=== PATIENT | male | born 1935 | race Caucasian/White ===

== ENCOUNTER 2017-11-05 09:39 | Inpatient (IN) | payer MEDICARE ==
--- NOTE | 2017-11-05 10:13 | ED ---
Upper Extremity HPI - General Chief Complaint: Extremity Injury, Upper Stated Complaint: fall Time Seen by Provider: 11/05/17 10:00 Source: patient, EMS, RN notes reviewed Mode of arrival: EMS Limitations: no limitations - History of Present Illness Initial Comments: This is a 81-year-old male who uses a walker a scooter to move about normally was trying to negotiate 3 stairs when he had his arm on a rail and he felt a pop and it. He fell down and was unable to get up. Denies any upper is normal for him if he gets out he states he complains of pain in the right elbow and abrasions to the right first and second dorsal toes no other injuries or pain reported. He states his right hip as bad but this is not affected by today's activity. He does state that over the of October he was using his right upper extremity when he had another popping sensation in his hasn't swelling to the posterior aspect of the elbow since then. He denies any fevers chills sweats headache neck and back pain. No other modifying factors at this time. MD Complaint: Injury to:: right, elbow - Related Data Allergies Allergy/AdvReac Type Severity Reaction Status Date / Time No Known Allergies Allergy Verified 11/05/17 09:41 Review of Systems ROS Statement: Those systems with pertinent positive or pertinent negative responses have been documented in the HPI. ROS Other: All systems not noted in ROS Statement are negative. Past Medical History Past Medical History: No Reported History History of Any Multi-Drug Resistant Organisms: None Reported Past Surgical History: Appendectomy Past Psychological History: No Psychological Hx Reported Smoking Status: Never smoker Past Alcohol Use History: Occasional General Exam - General Exam Comments Initial Comments: This is a well-developed well-nourished awake alert oriented 3 male Larisa Coma Scale 15 Limitations: no limitations General appearance: alert, in no apparent distress Head exam: Present: atraumatic, normocephalic, normal inspection Eye exam: Present: normal appearance, PERRL, EOMI. Absent: scleral icterus, conjunctival injection, periorbital swelling ENT exam: Present: normal exam, mucous membranes moist Neck exam: Present: normal inspection. Absent: tenderness, meningismus, lymphadenopathy Respiratory exam: Present: normal lung sounds bilaterally. Absent: respiratory distress, wheezes, rales, rhonchi, stridor Cardiovascular Exam: Present: regular rate, normal rhythm, normal heart sounds. Absent: systolic murmur, diastolic murmur, rubs, gallop, clicks GI/Abdominal exam: Present: soft, normal bowel sounds. Absent: distended, tenderness, guarding, rebound, rigid Extremities exam: Present: full ROM, tenderness, normal capillary refill, other (Tennis palpation to the right upper extremity over the elbow is evidence of a swelling to the posterior aspect of the right elbow which may reflect a bursitis.). Absent: pedal edema, joint swelling, calf tenderness Back exam: Present: normal inspection Neurological exam: Present: alert, oriented X3, CN II-XII intact Psychiatric exam: Present: normal affect, normal mood Skin exam: Present: warm, dry, intact, other (Some discoloration to the right lower extremity he states she's had this for about a year status post placing some ointment on his right lower extremity). Absent: normal color, rash Course Vital Signs 11/05/17 09:41 Temperature 98.7 F Pulse Rate 88 Respiratory 16 Rate Blood Pressure 165/91 O2 Sat by Pulse 97 Oximetry Medical Decision Making - Medical Decision Making Did have a long discussion with the patient and family members including his son via telephone. Patient will be admitted for placement. He is a risk for fall at home and unable care for himself. - Lab Data Result diagrams: 11/05/17 11:24 11/05/17 11:24 Lab Results 11/05/17 11/05/17 11/05/17 Range/Units 11:24 11:24 11:24 WBC 8.6 (3.8-10.6) k/uL RBC 4.83 (4.30-5.90) m/uL Hgb 15.4 (13.0-17.5) gm/dL Hct 45.8 (39.0-53.0) % MCV 94.9 (80.0-100.0) fL MCH 32.0 (25.0-35.0) pg MCHC 33.7 (31.0-37.0) g/dL RDW 13.8 (11.5-15.5) % Plt Count 156 (150-450) k/uL Neutrophils % 85 % Lymphocytes % 8 % Monocytes % 6 % Eosinophils % 1 % Basophils % 0 % Neutrophils # 7.2 (1.3-7.7) k/uL Lymphocytes # 0.7 L (1.0-4.8) k/uL Monocytes # 0.5 (0-1.0) k/uL Eosinophils # 0.1 (0-0.7) k/uL Basophils # 0.0 (0-0.2) k/uL Sodium 139 (137-145) mmol/L Potassium 4.6 (3.5-5.1) mmol/L Chloride 107 (98-107) mmol/L Carbon Dioxide 26 (22-30) mmol/L Anion Gap 6 mmol/L BUN 17 (9-20) mg/dL Creatinine 0.80 (0.66-1.25) mg/dL Est GFR (CKD-EPI)AfAm >90 (>60 ml/min/1.73 sqM) Est GFR (CKD-EPI)NonAf 85 (>60 ml/min/1.73 sqM) Glucose 112 H (74-99) mg/dL Calcium 9.1 (8.4-10.2) mg/dL Magnesium 2.0 (1.6-2.3) mg/dL Total Bilirubin 0.9 (0.2-1.3) mg/dL AST 29 (17-59) U/L ALT 33 (21-72) U/L Alkaline Phosphatase 80 (38-126) U/L Total Creatine Kinase 148 (55-170) U/L CK-MB (CK-2) 3.0 H* (0.0-2.4) ng/mL CK-MB (CK-2) Rel Index 2.0 Troponin I <0.012 (0.000-0.034) ng/mL Total Protein 6.4 (6.3-8.2) g/dL Albumin 3.8 (3.5-5.0) g/dL - EKG Data -: EKG Interpreted by Me (Sinus rhythm rate of 87 first-degree AV block VT interval 248 QRS duration ) - Radiology Data Radiology results: report reviewed (I did review the imaging and report marked degenerative change seen in the right hip distally no fractures seen the right elbow there is evidence of swelling about the right olecranon.), image reviewed Disposition Clinical Impression: Failure to thrive, Fall, Strain of right elbow, Chronic right hip pain Disposition: ADMITTED IP TO THIS [facility] Condition: Stable Referrals: Michelle Reynaga MD [Primary Care Provider] - 1-2 days
--- NOTE | 2017-11-05 10:27 | XR ---
EXAMINATION TYPE: XR elbow complete RT , 3 VIEWS DATE OF EXAM ORDERED: 11/05/2017 HISTORY: Pain. COMPARISON: None. FINDINGS: No fracture, dislocation or joint effusion is seen. There is a small olecranon spur. There are vascular calcifications in the posterior aspect of the arm likely reflecting phleboliths. There is evidence of chronic calcific tendinosis of the common extensor origin. IMPRESSION: NO ACUTE OSSEOUS LESION.
[2017-11-05 11:45] LABS: Basophils % (A) 0 %; Eosinophils # (A) 0.1 k/uL (0-0.7); Eosinophils % (A) 1 %; HCT 45.8 % (39.0-53.0); HGB 15.4 gm/dL (13.0-17.5); Lymphocytes # (A) 0.7 k/uL (1.0-4.8); Lymphocytes % (A) 8 %; MCHC 33.7 g/dL (31.0-37.0); MCV 94.9 fL (80.0-100.0); Mean Platelet Volume 7.2; Monocytes # (A) 0.5 k/uL (0-1.0); Monocytes % (A) 6 %; Neutrophils # (A) 7.2 k/uL (1.3-7.7); Neutrophils % (A) 85 %; Platelet Count 156 k/uL (150-450); RBC 4.83 m/uL (4.30-5.90); RDW 13.8 % (11.5-15.5); WBC 8.6 k/uL (3.8-10.6)
[2017-11-05 12:02] LABS: ALT 33 U/L (21-72); AST 29 U/L (17-59); Albumin 3.8 g/dL (3.5-5.0); Alkaline Phosphatase 80 U/L (38-126); Anion Gap 6 mmol/L; Blood Urea Nitrogen 17 mg/dL (9-20); Calcium 9.1 mg/dL (8.4-10.2); Carbon Dioxide 26 mmol/L (22-30); Chloride 107 mmol/L (98-107); Glucose 112 mg/dL (74-99); Potassium 4.6 mmol/L (3.5-5.1); Sodium 139 mmol/L (137-145); Total Bilirubin 0.9 mg/dL (0.2-1.3); Total Protein 6.4 g/dL (6.3-8.2)
[2017-11-05 12:11] LABS: Creatine Kinase 148 U/L (55-170)
[2017-11-05 12:24] LABS: Troponin I <0.012 ng/mL (0.000-0.034)
[2017-11-05 12:56] LABS: Amorphous Sediment,Urine Rare /hpf; Appearance,Urine Clear (Clear); Bacteria,Urine Rare /hpf; Bilirubin,Urine Negative (Negative); Blood,Urine Negative (Negative); Color,Urine Yellow; Glucose,Urine (UA) Negative (Negative); Hyaline Casts,Urine 5 /lpf (0-2); Ketones,Urine Negative (Negative); Leukocyte Esterase,Urine Large (Negative); Mucus,Urine Rare /hpf; Nitrite,Urine Negative (Negative); PH, Urine 6.5 (5.0-8.0); Protein,Urine Trace (Negative); RBC,Urine 2 /hpf (0-5); Specific Gravity,Urine 1.014 (1.001-1.035); Squamous Epithelial Cell,Urine 1 /hpf (0-4); WBC,Urine 59 /hpf (0-5)
[2017-11-05] MEDS ORDERED: NALOXONE 0.4 MG/ML 1 ML VIAL IV PRN (12:57)
[2017-11-05] MEDS ORDERED: HYDROmorphone 0.5 MG/0.5 ML SYRINGE IVP PRN (13:00)
--- NOTE | 2017-11-05 13:14 | XR ---
EXAMINATION TYPE: XR Hip RT and AP Pelvis , 2 VIEWS DATE OF EXAM ORDERED: 11/05/2017 HISTORY: Pain. COMPARISON: None. FINDINGS: There is extensive and severe degenerative change of both hips. There is mild degenerative change in the lower lumbar spine. No acute fracture is seen. IMPRESSION: 1. EXTENSIVE DEGENERATIVE CHANGE. 2. NO ACUTE OSSEOUS LESION.
--- NOTE | 2017-11-05 13:15 | XR ---
EXAMINATION TYPE: XR chest 2V DATE OF EXAM: 11/05/2017 HISTORY: cough. REFERENCE: NONE. FINDINGS: Lung volumes are prominent. The lungs are clear. Heart size is enlarged. Pleural spaces are clear. IMPRESSION: 1. COPD. 2. CARDIOMEGALY.
[2017-11-05] MEDS: SODIUM CHLORIDE 0.9% 1,000 ML IV SCH (13:44)
[2017-11-05 14:57] VITALS: BMI 34.9
[2017-11-05] MEDS: ACETAMINOPHEN TAB 325 MG TAB PO PRN (17:59)
[2017-11-06] MEDS: SODIUM CHLORIDE 0.9% 1,000 ML IV SCH ×2 (00:59→14:19)
[2017-11-06] MEDS: ACETAMINOPHEN TAB 325 MG TAB PO PRN ×3 (00:59→23:13)
--- NOTE | 2017-11-06 12:37 | P.CNOR ---
History of Present Illness - HPI Consult date: 11/06/17 History of present illness: This is an 81-year-old male was admitted for right hip and right elbow pain. Patient states that he ambulates with a walker due to limited mobility of bilateral lower extremities. Patient states that on 10/26/2017 he felt a pop in the right elbow. Patient states that he did not experience much pain at this time. Patient states that yesterday he was walking up the stairs and using his right arm to support his weight when he heard a pop and his right elbow gave out on him and he fell. Patient reports pain with extension of the right upper extremity and ecchymosis to the right arm. Patient states that his right hip pain is chronic for him and this is not worse after his fall. Patient states that he may have hit his head, but he denies any loss of consciousness. Patient denies being on any anticoagulants. Patient denies any headaches, nausea, numbness, weakness, tingling, fever or chills. Review of Systems See HPI. Past Medical History Past Medical History: No Reported History History of Any Multi-Drug Resistant Organisms: None Reported Past Surgical History: Appendectomy Additional Past Surgical History / Comment(s): galstones removed Smoking Status: Never smoker Medications and Allergies Home Medications Medication Instructions Recorded Confirmed Type No Known Home Medications 11/05/17 11/05/17 History Allergies Allergy/AdvReac Type Severity Reaction Status Date / Time No Known Allergies Allergy Verified 11/05/17 14:59 Physical Examination On exam patient is alert and oriented 3. Patient is lying in bed in no acute distress. On exam of the right upper extremity there is ecchymosis to the medial and posterior aspects of the right upper arm and elbow. There is swelling and ecchymosis over the right elbow. There is tenderness to palpation over the posterior medial aspect of the right elbow. Patient has full flexion but has weakness and pain with extension of the right elbow. There is no tenderness to palpation over the right shoulder, forearm, wrist or hand. Sensation is intact. Radial pulses 2+. Patient has full range of motion of the right wrist and hand. Neurovascular status and circulatory status are intact. Skin is intact. On exam of the right hip patient has pain with log roll. Patient has very limited range of motion of the right hip due to pain. There is no tenderness to palpation over the right hip. There is no erythema, ecchymosis or swelling of the right hip. Patient has full foot and ankle motion without pain or difficulty. Calves are soft and nontender bilaterally. Neurovascular status and circulatory status are intact. Results X-rays of the right hip and pelvis show severe arthritis of bilateral hips. No fracture or dislocation. X-rays of the right elbow are negative for any fracture or dislocation. - Labs Labs: Abnormal Lab Results - Last 24 Hours (Table) 11/05/17 11/05/17 11/05/17 Range/Units 11:24 11:24 11:24 Lymphocytes # 0.7 L (1.0-4.8) k/uL Glucose 112 H (74-99) mg/dL CK-MB (CK-2) 3.0 H* (0.0-2.4) ng/mL Urine Protein (Negative) Ur Leukocyte Esterase (Negative) Urine WBC (0-5) /hpf Amorphous Sediment (None) /hpf Urine Bacteria (None) /hpf Hyaline Casts (0-2) /lpf Urine Mucus (None) /hpf 11/05/17 Range/Units 12:37 Lymphocytes # (1.0-4.8) k/uL Glucose (74-99) mg/dL CK-MB (CK-2) (0.0-2.4) ng/mL Urine Protein Trace H (Negative) Ur Leukocyte Esterase Large H (Negative) Urine WBC 59 H (0-5) /hpf Amorphous Sediment Rare H (None) /hpf Urine Bacteria Rare H (None) /hpf Hyaline Casts 5 H (0-2) /lpf Urine Mucus Rare H (None) /hpf H & H 11/05/17 Range/Units 11:24 Hgb 15.4 (13.0-17.5) gm/dL Hct 45.8 (39.0-53.0) % Result Diagrams: 11/05/17 11:24 11/05/17 11:24 Assessment and Plan (1) Osteoarthritis of hips, bilateral Current Visit: Yes Status: Acute Code(s): M16.0 - BILATERAL PRIMARY OSTEOARTHRITIS OF HIP SNOMED Code(s): 545806207 (2) Right elbow pain Current Visit: Yes Status: Acute Code(s): M25.521 - PAIN IN RIGHT ELBOW SNOMED Code(s): 38569319 (3) Triceps strain Current Visit: Yes Status: Acute Code(s): S46.319A - STRAIN OF MUSC/FASC/ TEND TRICEPS, UNSP ARM, INIT SNOMED Code(s): 612148373 Plan: 1. X-rays of the right elbow show no fracture or dislocation. 2. Rest and ice the right upper extremity. Sling for comfort. 3. Weightbearing as tolerated to right upper extremity. 4. X-rays of the right hip show severe osteoarthritis. No fracture or dislocation. Physical therapy for gait training. 5. No surgical intervention planned. Will continue to follow the patient closely.
--- NOTE | 2017-11-06 15:09 | P.HPIM ---
History of Present Illness H&P Date: 11/06/17 Joel Melendrez, is an 81-year-old male who presented to [facility] emergency room after sustaining a fall at home and having difficulty ambulating. Patient has a known history of osteoarthritis of bilateral hips he uses a scooter and a walker at home he was trying to go up the stairs with the use of a walker when he fell and injured his right elbow patient had a larger bruise in the right elbow area he was then able to get up due to severe pain, he is unable to use a walker due to pain in his right elbow, he was brought into emergency room x-ray of the right elbow did not reveal any evidence of fracture he was admitted to medical floor and orthopedic surgery consultation was requested. Patient states that he has not seen a physician for many years, he is follows with Dr. irving, he states that he has seen Dr. irving in the past when he was sick. He denies ever being diagnosed was any cardiac or pulmonary or renal condition he has not had any blood tests or any other tested many years. Past Medical History Past Medical History: No Reported History History of Any Multi-Drug Resistant Organisms: None Reported Past Surgical History: Appendectomy Additional Past Surgical History / Comment(s): galstones removed Smoking Status: Never smoker Medications and Allergies Home Medications Medication Instructions Recorded Confirmed Type No Known Home Medications 11/05/17 11/05/17 History Allergies Allergy/AdvReac Type Severity Reaction Status Date / Time No Known Allergies Allergy Verified 11/05/17 14:59 Physical Exam Vitals: Vital Signs Temp Pulse Pulse Resp BP Pulse Ox 11/06/17 14:10 98.5 F 63 16 178/79 97 11/06/17 07:00 97.6 F 64 16 173/82 99 11/06/17 01:05 98.3 F 64 17 135/70 98 11/06/17 00:00 16 11/05/17 21:40 16 11/05/17 20:00 98.5 F 73 17 133/66 98 11/05/17 15:00 97.8 F 53 L 16 192/75 97 Intake and Output 11/05/17 11/06/17 11/06/17 22:59 06:59 14:59 Intake Total 880 118 Output Total 100 Balance 780 118 Intake: Intake, IV Titration 240 Amount Sodium Chloride 0.9% 1, 240 000 ml @ 80 mls/hr IV . [id number] [facility] Rx#:[id number] Oral 640 118 Output: Urine 100 Other: Voiding Method Urinal Urinal # Voids 1 3 # Bowel Movements 1 1 # Emeses 0 In general patient is alert and oriented 3 in no apparent distress HEENT head normocephalic and atraumatic Neck is supple no JVD no goiter no lymphadenopathy Chest exam reveals a few scattered rhonchi no wheezing Cardiac exam reveals regular heart sounds S1 and S2 no gallops no murmurs Abdomen is soft nontender no organomegaly with normal bowel sounds Extremity exam reveals no edema no cyanosis or clubbing there is a large bruise in the right elbow area Results CBC & Chem 7: 11/05/17 11:24 11/05/17 11:24 Thrombosis Risk Factor Assmnt - Choose All That Apply Any of the Below Risk Factors Present?: Yes Each Factor Represents 1 point: Medical pt on bed rest, Obesity (BMI >25), Swollen legs (current) Other Risk Factors: Yes Each Risk Factor Represents 2 Points: Patient confined to bed Each Risk Factor Represents 3 Points: Age 75 years or older, History of DVT/PE Other congenital or acquired thrombophilia - If yes, enter type in comment: No Thrombosis Risk Factor Assessment Total Risk Factor Score: 11 Thrombosis Risk Factor Assessment Level: High Risk Assessment and Plan Plan: #1 fall, with right elbow injury with large bruise suggestive of possible tendon rupture #2 physical debility patient used a walker and scooter for mobility he is unable to use his walker or transferred due to severe pain in the right elbow #3 evidence of urinary tract infection Will start IV Rocephin Will check urine culture #4 cardiomegaly on chest x-ray patient has not had any medical evaluation in many years, will check echocardiogram At this time will consult physical therapy and occupational therapy For DVT prophylaxis continue with SCD stockings avoid anticoagulation due to large bruise in the right elbow area For GI prophylaxis will start Protonix 40 mg by mouth daily Will check routine labs including TSH and PSA Will follow closely patient may need admission to rehab if and able to stand or walk without help
[2017-11-06] MEDS: cefTRIAXone IN SWFI 1,000 MG/10 ML SYRINGE IVP SCH (15:48)
[2017-11-06 16:05] LABS: PSA Annual Screen 3.05 ng/mL (0.00-4.00)
[2017-11-07] MEDS: SODIUM CHLORIDE 0.9% 1,000 ML IV SCH ×2 (02:22→16:42)
[2017-11-07] MEDS: PANTOPRAZOLE 40 MG TABLET PO SCH (08:17)
[2017-11-07] MEDS: cefTRIAXone IN SWFI 1,000 MG/10 ML SYRINGE IVP SCH (08:17)
--- NOTE | 2017-11-07 09:28 | P.PN ---
Subjective Progress Note Date: 11/07/17 Principal diagnosis: Right hip and elbow pain This is an 81 year-old male who we have been following for right hip and elbow pain. The patient was evaluated at the bedside today. The patient denies nausea , vomiting, abdominal pain, shortness of breath, and chest pain this morning. He states his pain is controlled at this time. The patient has been up with physical therapy but is moving slowly. Objective - Vital Signs Vital signs: Vital Signs Temp 98.3 F 11/07/17 02:00 Pulse 63 11/07/17 02:00 Resp 18 11/07/17 02:00 BP 159/73 11/07/17 02:00 Pulse Ox 95 11/07/17 02:00 Intake & Output 11/06/17 11/07/17 11/07/17 18:59 06:59 18:59 Intake Total 355 1610 Output Total 220 Balance 355 1390 Intake: Intake, IV Titration 1130 Amount Sodium Chloride 0.9% 1, 1130 000 ml @ 80 mls/hr IV . [id number] [facility] Rx#:[id number] Oral 355 480 Output: Urine 220 Other: Voiding Method Urinal Urinal Diaper # Voids 3 2 # Bowel Movements 1 1 - Exam The patient is an 81-year-old male who is in no acute distress. He is alert and oriented 3. Exam of the right upper extremity reveals ecchymosis to the medial and posterior aspect of the right upper arm and elbow. No open wounds are present. There is swelling and ecchymosis over the elbow. There is tenderness to palpation over the entire elbow. Patient does have full flexion of the elbow but has weakness and pain with extension of the elbow. There is no tenderness over the shoulder, forearm, wrist, or hand. Sensation is intact circulatory status is intact with brisk cap refill. Exam of the right hip the patient does have pain upon logroll. He has very limited range of motion to the right hip due to pain. There is no tenderness to palpation over the hip. There is no erythema, ecchymosis, or swelling to the right hip. The patient has full foot and ankle range of motion without difficulty. Bilateral calves are soft and nontender. Neurological and circulatory status is intact. - Labs CBC & Chem 7: 11/05/17 11:24 11/05/17 11:24 Assessment and Plan (1) Osteoarthritis of hips, bilateral Current Visit: Yes Status: Acute Code(s): M16.0 - BILATERAL PRIMARY OSTEOARTHRITIS OF HIP SNOMED Code(s): 688707861 (2) Right elbow pain Current Visit: Yes Status: Acute Code(s): M25.521 - PAIN IN RIGHT ELBOW SNOMED Code(s): 29276600 (3) Strain of right elbow Current Visit: Yes Status: Acute Code(s): S56.911A - STRAIN OF UNSP MUSC/ FASC/TEND AT FORARM LV, RIGHT ARM, INIT SNOMED Code(s): 805754555 Plan: The clinical and x-ray findings were discussed with the patient. The patient was encouraged to ice and elevate the right upper extremity as needed. Sling can be used for comfort. Weightbearing as tolerated to the right upper and lower extremity. Continue physical therapy. Continue pain control. The patient would like to be discharged home if possible but he might need rehab if he is unsafe to go home. We will continue to follow the patient.
[2017-11-07 09:52] LABS: Basophils % (A) 0 %; Eosinophils # (A) 0.2 k/uL (0-0.7); Eosinophils % (A) 2 %; HCT 42.1 % (39.0-53.0); HGB 14.3 gm/dL (13.0-17.5); Lymphocytes % (A) 11 %; MCH 32.4 pg (25.0-35.0); MCHC 33.9 g/dL (31.0-37.0); MCV 95.5 fL (80.0-100.0); Mean Platelet Volume 7.4; Monocytes # (A) 0.5 k/uL (0-1.0); Monocytes % (A) 5 %; Neutrophils # (A) 7.2 k/uL (1.3-7.7); Neutrophils % (A) 81 %; Platelet Count 154 k/uL (150-450); RBC 4.41 m/uL (4.30-5.90); RDW 13.7 % (11.5-15.5); WBC 8.9 k/uL (3.8-10.6)
[2017-11-07 10:12] LABS: Anion Gap 5 mmol/L; Blood Urea Nitrogen 13 mg/dL (9-20); Calcium 8.5 mg/dL (8.4-10.2); Carbon Dioxide 23 mmol/L (22-30); Chloride 111 mmol/L (98-107); Glucose 118 mg/dL (74-99); Potassium 3.9 mmol/L (3.5-5.1); Sodium 139 mmol/L (137-145)
--- NOTE | 2017-11-07 10:21 | ECHOF ---
Referral Reason:cardiomegaly MEASUREMENTS -------- HEIGHT: 185.4 cm WEIGHT: 127.0 kg BP: 159/73 RVIDd: 3.2 cm (< 3.3) IVSd: 1.4 cm (0.6 - 1.1) LVIDd: 4.3 cm (3.9 - 5.3) LVPWd: 1.2 cm (0.6 - 1.1) IVSs: 2.0 cm LVIDs: 2.8 cm LVPWs: 1.5 cm Ao Diam: 4.1 cm (2.0 - 3.7) AV Cusp: 2.0 cm (1.5 - 2.6) LA Diam: 3.5 cm (2.7 - 3.8) MV EXCURSION: 17.310 mm (> 18.000) MV EF SLOPE: 60 mm/s (70 - 150) EPSS: 0.5 cm MV E Harrison: 0.65 m/s MV DecT: 259 ms MV A Harrison: 0.71 m/s MV E/A Ratio: 0.92 RAP: 5.00 mmHg RVSP: 11.86 mmHg FINDINGS -------- Sinus rhythm. Morbid Obesity This was a techncally difficult study with suboptimal views, , Lumason utilized for enhancement of im ages. The left ventricular size is normal. There is moderate concentric left ventricular hypertrophy. O verall left ventricular systolic function is low-normal with, an EF between 50 - 55 %. The right ventricle is normal in size. The left atrial size is normal. The right atrial size is normal. The aortic valve was not well visualized. There is no evidence of aortic regurgitation. Mild mitral annular calcification present. Mild mitral regurgitation is present. Mild tricuspid regurgitation present. The right ventricular systolic pressure, as measured by Doppl er, is 11.86mmHg. Trace/mild (physiologic) pulmonic regurgitation. 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 There is no pericardial effusion. CONCLUSIONS -------- 1. Morbid Obesity 2. This was a techncally difficult study with suboptimal views, , Lumason utilized for enhancement of images. 3. The left ventricular size is normal. 4. There is moderate concentric left ventricular hypertrophy. 5. Overall left ventricular systolic function is low-normal with, an EF between 50 - 55 %. 6. The right ventricle is normal in size. 7. The left atrial size is normal. 8. The right atrial size is normal. 9. The aortic valve was not well visualized. 10. Mild mitral annular calcification present. 11. Mild mitral regurgitation is present. 12. Mild tricuspid regurgitation present. 13. The right ventricular systolic pressure, as measured by Doppler, is 11.86mmHg. 14. Trace/mild (physiologic) pulmonic regurgitation. 15. 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 16. There is no pericardial effusion. PET TRAINING INSTRUCTOR: Navya Casillas RDCS
--- NOTE | 2017-11-07 14:01 | P.PN ---
Subjective Progress Note Date: 11/07/17 Joel Melendrez, is an 81-year-old male who presented to [facility] emergency room after sustaining a fall at home and having difficulty ambulating. Patient has a known history of osteoarthritis of bilateral hips he uses a scooter and a walker at home he was trying to go up the stairs with the use of a walker when he fell and injured his right elbow patient had a larger bruise in the right elbow area he was then able to get up due to severe pain, he is unable to use a walker due to pain in his right elbow, he was brought into emergency room x-ray of the right elbow did not reveal any evidence of fracture he was admitted to medical floor and orthopedic surgery consultation was requested. Patient states that he has not seen a physician for many years, he is follows with Dr. irving, he states that he has seen Dr. irving in the past when he was sick. He denies ever being diagnosed was any cardiac or pulmonary or renal condition he has not had any blood tests or any other tested many years. On 11/07/2017 is currently sitting up in chair. Patient states he is feeling better but is still quite weak with his right elbow bruising and right hip pain. Per surgical services no intervention continue rest and ice of upper extremity, weight bearing as tolerated and physical therapy for right hip osteoarthritis. Social work has been consulted for possible placement in either [facility] or [facility]. Patient currently on Rocephin for UTI, Urine culture currently in progress. At this time patient denies chest pain or shortness of breath. Objective - Vital Signs Vital signs: Vital Signs Temp 97.1 F L 11/07/17 08:15 Pulse 70 11/07/17 08:15 Resp 18 11/07/17 08:15 BP 151/54 11/07/17 08:15 Pulse Ox 95 11/07/17 02:00 Intake & Output 11/06/17 11/07/17 11/07/17 18:59 06:59 18:59 Intake Total 355 1610 480 Output Total 220 Balance 355 1390 480 Weight 127.006 kg Intake: Intake, IV Titration 1130 480 Amount Sodium Chloride 0.9% 1, 1130 480 000 ml @ 80 mls/hr IV . [id number] [facility] Rx#:[id number] Oral 355 480 Output: Urine 220 Other: Voiding Method Urinal Urinal Diaper # Voids 3 2 # Bowel Movements 1 1 - Exam HEENT head normocephalic and atraumatic Neck is supple no JVD no goiter no lymphadenopathy Chest exam reveals a few scattered rhonchi no wheezing Cardiac exam reveals regular heart sounds S1 and S2 no gallops no murmurs Abdomen is soft nontender no organomegaly with normal bowel sounds Extremity exam reveals no edema no cyanosis or clubbing there is a large bruise in the right elbow area - Labs CBC & Chem 7: 11/07/17 09:35 11/07/17 09:35 Labs: Abnormal Lab Results - Last 24 Hours (Table) 11/07/17 Range/Units 09:35 Chloride 111 H (98-107) mmol/L Glucose 118 H (74-99) mg/dL Microbiology - Last 24 Hours (Table) 11/07/17 07:05 Urine Culture - Preliminary Urine,Clean Catch Assessment and Plan Assessment: #1 fall, with right elbow injury with large bruise suggestive of possible tendon rupture. Surgical services consulted. No surgical intervention at this time continue to ice and elevate right upper extremity, weightbearing tolerate to right upper arm and lower extremity and continue physical therapy. #2 physical debility patient used a walker and scooter for mobility he is unable to use his walker or transferred due to severe pain in the right elbow. Social work has been consulted for possible placement at either [facility] or [facility] for physical therapy. #3 evidence of urinary tract infection Will start IV Rocephin Will check urine culture. Urine culture pending #4 cardiomegaly on chest x-ray patient has not had any medical evaluation in many years, will check echocardiogram. 2-D echo completed showing an EF of 50- 55%. At this time will consult physical therapy and occupational therapy For DVT prophylaxis continue with SCD stockings avoid anticoagulation due to large bruise in the right elbow area For GI prophylaxis will start Protonix 40 mg by mouth daily Will check routine labs including TSH and PSA, PSA level 3.05 and TSH level 2.820 Will follow closely patient may need admission to rehab if and able to stand or walk without help I performed an examination of the patient and discussed their management with the Nurse Practitioner. I have reviewed the Nurse Practitioner's notes and agree with the documented findings and plan of care
[2017-11-07] MEDS: ACETAMINOPHEN TAB 325 MG TAB PO PRN (19:00)
[2017-11-08 07:45] LABS: Basophils % (A) 1 %; Eosinophils # (A) 0.2 k/uL (0-0.7); Eosinophils % (A) 3 %; HCT 39.2 % (39.0-53.0); HGB 13.3 gm/dL (13.0-17.5); Lymphocytes # (A) 0.9 k/uL (1.0-4.8); Lymphocytes % (A) 15 %; MCH 32.5 pg (25.0-35.0); MCHC 33.9 g/dL (31.0-37.0); MCV 95.9 fL (80.0-100.0); Mean Platelet Volume 7.5; Monocytes # (A) 0.4 k/uL (0-1.0); Monocytes % (A) 7 %; Neutrophils # (A) 4.3 k/uL (1.3-7.7); Neutrophils % (A) 73 %; Platelet Count 139 k/uL (150-450); RBC 4.09 m/uL (4.30-5.90); RDW 13.8 % (11.5-15.5); WBC 5.9 k/uL (3.8-10.6)
[2017-11-08 07:58] VITALS: TEMP 98.5
[2017-11-08 08:03] LABS: ALT 35 U/L (21-72); AST 35 U/L (17-59); Albumin 3.1 g/dL (3.5-5.0); Alkaline Phosphatase 63 U/L (38-126); Anion Gap 5 mmol/L; Blood Urea Nitrogen 16 mg/dL (9-20); Calcium 8.4 mg/dL (8.4-10.2); Carbon Dioxide 26 mmol/L (22-30); Chloride 107 mmol/L (98-107); Glucose 104 mg/dL (74-99); Potassium 3.7 mmol/L (3.5-5.1); Sodium 138 mmol/L (137-145); Total Bilirubin 1.1 mg/dL (0.2-1.3); Total Protein 5.5 g/dL (6.3-8.2)
[2017-11-08] MEDS: PANTOPRAZOLE 40 MG TABLET PO SCH (09:04)
[2017-11-08] MEDS: cefTRIAXone IN SWFI 1,000 MG/10 ML SYRINGE IVP SCH (09:04)
[2017-11-08 10:12] VITALS: BP 155/62; PULSE 82; RESP 13
--- NOTE | 2017-11-08 13:15 | P.DS ---
Providers Date of admission: 11/05/17 12:58 Expected date of discharge: 11/08/17 Attending physician: Cammy Duff Consults: 11/05/17 12:59 Consult Physician Routine Consulting Provider: Victor Manuel Saunders Consult Reason/Comments: Chronic right hip pain, right elbow pain Do you want consulting provider notified?: Yes Primary care physician: Michelle Reynaga [facility] Course: Discharge diagnosis #1 fall, with right elbow injury with large bruise suggestive of possible tendon rupture. Surgical services consulted. No surgical intervention at this time continue to ice and elevate right upper extremity, weightbearing tolerate to right upper arm and lower extremity and continue physical therapy. Follow- up appointment on November [address] Saunders #2 physical debility patient used a walker and scooter for mobility he is unable to use his walker or transferred due to severe pain in the right elbow. Social work has been consulted for possible placement at either [facility] or [facility] for physical therapy. Patient will be discharged to [facility] for more physical therapy #3 evidence of urinary tract infection Will start IV Rocephin Will check urine culture. Urine culture showing no growth. Patient will be discharged to [facility] on Ceftin 500 twice a day for 3 days #4 cardiomegaly on chest x-ray patient has not had any medical evaluation in many years, will check echocardiogram. 2-D echo completed showing an EF of 50- 55%. For DVT prophylaxis continue with SCD stockings avoid anticoagulation due to large bruise in the right elbow area Will check routine labs including TSH and PSA, PSA level 3.05 and TSH level 2.820 Hospital course Joel Melendrez, is an 81-year-old male who presented to [facility] emergency room after sustaining a fall at home and having difficulty ambulating. Patient has a known history of osteoarthritis of bilateral hips he uses a scooter and a walker at home he was trying to go up the stairs with the use of a walker when he fell and injured his right elbow patient had a larger bruise in the right elbow area he was then able to get up due to severe pain, he is unable to use a walker due to pain in his right elbow, he was brought into emergency room x-ray of the right elbow did not reveal any evidence of fracture he was admitted to medical floor and orthopedic surgery consultation was requested. Patient states that he has not seen a physician for many years, he is follows with Dr. reynaga, he states that he has seen Dr. reynaga in the past when he was sick. He denies ever being diagnosed was any cardiac or pulmonary or renal condition he has not had any blood tests or any other tested many years. On 11/07/2017 is currently sitting up in chair. Patient states he is feeling better but is still quite weak with his right elbow bruising and right hip pain. Per surgical services no intervention continue rest and ice of upper extremity, weight bearing as tolerated and physical therapy for right hip osteoarthritis. Social work has been consulted for possible placement in either [facility] or [facility]. Patient currently on Rocephin for UTI, Urine culture currently in progress. At this time patient denies chest pain or shortness of breath. On 11/08/2017 patient is feeling well today. patient did state he was feeling dizzy when standing up this morning but since has subsided. Orthastic blood pressures have been checked with no major drop in blood pressure upon standing. No further complaints at this time. She denies chest pain or shortness of breath. Denies nausea vomiting or diarrhea. Denies any urinary frequency or burning. Patient will be discharged to [facility] for physical therapy at this time. I performed an examination of the patient and discussed their management with the Nurse Practitioner. I have reviewed the Nurse Practitioner's notes and agree with the documented findings and plan of care Patient Condition at Discharge: Stable Plan - Discharge Summary Discharge Rx Participant: No New Discharge Prescriptions: New Cefuroxime Axetil [Ceftin] 500 mg PO BID 3 Days #6 tab Acetaminophen Tab [Tylenol] 650 mg PO Q6HR PRN tab PRN Reason: Mild Pain Or Fever > 100.5 Discharge Medication List Acetaminophen Tab [Tylenol] 650 mg PO Q6HR PRN tab 11/08/17 [Rx] Cefuroxime Axetil [Ceftin] 500 mg PO BID 3 Days #6 tab 11/08/17 [Rx] Follow up Appointment(s)/Referral(s): Michelle Reynaga MD [Primary Care Provider] - 1-2 days Victor Manuel Saunders DO [Doctor of Osteopathic Medicine] - 11/21/17 10:30 am Ambulatory/Diagnostic Orders: Complete Blood Count w/diff [LAB.AMB] Time Frame: 2 Days, Location: None Selected Comprehensive Metabolic Panel [LAB.AMB] Time Frame: 2 Days, Location: None Selected Activity/Diet/Wound Care/Special Instructions: Diet: consistent Carb activity Weightbearing as tolerated to the right upper and lower extremity The patient was encouraged to ice and elevate the right upper extremity as needed. Sling can be used for comfort. [facility]charge [facility]
== END 2017-11-08 14:30 | DRG 563 ==
LOC: EC 09:39 → 3SUR 12:58
PROVIDERS: ADMIT Internal Medicine; ATTEND Internal Medicine
DX: S46.319A Strain of muscle, fascia and tendon of triceps, unspecified arm, initial encounter (principal); N39.0 Urinary tract infection, site not specified; S50.01XA Contusion of right elbow, initial encounter; S56.911A Strain of unspecified muscles, fascia and tendons at forearm level, right arm, initial encounter; G89.29 Other chronic pain; I51.7 Cardiomegaly; M16.0 Bilateral primary osteoarthritis of hip; R62.7 Adult failure to thrive; W10.9XXA Fall (on) (from) unspecified stairs and steps, initial encounter; Y92.009 Unspecified place in unspecified non-institutional (private) residence as the place of occurrence of the external cause; Y93.01 Activity, walking, marching and hiking; Z91.81 History of falling; R40.2142 Coma scale, eyes open, spontaneous, at arrival to emergency department; R40.2362 Coma scale, best motor response, obeys commands, at arrival to emergency department; R40.2252 Coma scale, best verbal response, oriented, at arrival to emergency department
CPT/HCPCS: 36415; 71046; 73502; 80048; 80053; 81001; 82550; 82553; 83735; 84443; 84484; 85025; 87086; 93005; 93306; 99285

== ENCOUNTER → 2018-01-02 | Outpatient (CLI) | payer MEDICARE ==
[2018-01-02 13:58] LABS: HCT 48.9 % (39.0-53.0); HGB 15.6 gm/dL (13.0-17.5); MCH 30.6 pg (25.0-35.0); MCHC 31.8 g/dL (31.0-37.0); MCV 96.1 fL (80.0-100.0); Mean Platelet Volume 6.8; Platelet Count 207 k/uL (150-450); RBC 5.09 m/uL (4.30-5.90); RDW 13.8 % (11.5-15.5); WBC 6.3 k/uL (3.8-10.6)
[2018-01-02 14:03] LABS: ALT 41 U/L (21-72); AST 28 U/L (17-59); Albumin 4.1 g/dL (3.5-5.0); Alkaline Phosphatase 87 U/L (38-126); Anion Gap 11 mmol/L; Blood Urea Nitrogen 17 mg/dL (9-20); Calcium 9.3 mg/dL (8.4-10.2); Carbon Dioxide 24 mmol/L (22-30); Chloride 104 mmol/L (98-107); Glucose 112 mg/dL (74-99); Potassium 4.8 mmol/L (3.5-5.1); Sodium 139 mmol/L (137-145); Total Bilirubin 0.6 mg/dL (0.2-1.3); Total Protein 7.1 g/dL (6.3-8.2)
[2018-01-02 14:05] LABS: Appearance,Urine Clear (Clear); Bilirubin,Urine Negative (Negative); Blood,Urine Negative (Negative); Color,Urine Yellow; Glucose,Urine (UA) Negative (Negative); Ketones,Urine Negative (Negative); Leukocyte Esterase,Urine Small (Negative); Mucus,Urine Occasional /hpf; Nitrite,Urine Negative (Negative); PH, Urine 5.5 (5.0-8.0); Partial Thromboplastin Time 23.3 sec (22.0-30.0); Protein,Urine Trace (Negative); RBC,Urine 2 /hpf (0-5); Specific Gravity,Urine 1.017 (1.001-1.035); Squamous Epithelial Cell,Urine 1 /hpf (0-4); Urobilinogen,Urine <2.0 mg/dL (<2.0); WBC,Urine 2 /hpf (0-5)
== END | disposition home or self-care (01) ==
LOC: LABPAT 12:47
PROVIDERS: ATTEND Orthopaedic Surgery
DX: Z01.812 Encounter for preprocedural laboratory examination (principal); Z79.01 Long term (current) use of anticoagulants
CPT/HCPCS: 80053; 81001; 85027; 85610; 85730; 86850; 86900; 86901; 87070; 87077; 87086; 87186

== ENCOUNTER 2018-01-10 10:29 | Inpatient (IN) | payer MEDICARE ==
[2018-01-05 07:49] VITALS: BMI 38.0
[~2018-01-10 10:29] MED LIST: ACETAMINOPHEN TAB 500 MG TAB PO ONE; MELOXICAM 7.5 MG TAB PO ONE; TRANEXAMIC ACID 1,000 MG in SODIUM CHLORIDE 0.9% 50 ML IVPB ONE; VANCOMYCIN 2,000 MG in SODIUM CHLORIDE 0.9% 500 ML IVPB ONE
[2018-01-10] MEDS ORDERED: LIDOCAINE 1% 20 ML VIAL (10MG/ML) FOR IV START INTRADERMA ONE (13:20)
[2018-01-10] MEDS ORDERED: LACTATED RINGERS 1,000 ML IV ONE ×2 (13:21→16:30)
[2018-01-10] MEDS ORDERED: MIDAZOLAM 2 MG/2 ML VIAL ONE ×2 (13:56→15:28)
[2018-01-10] MEDS ORDERED: ONDANSETRON 4 MG/2 ML VIAL ONE (13:57)
[2018-01-10] MEDS ORDERED: fentaNYL (PF) 50 MCG/ML 2 ML AMP ONE ×2 (13:57→15:28)
[2018-01-10] MEDS ORDERED: ONDANSETRON 4 MG/2 ML VIAL IVP ONE (14:00)
[2018-01-10] MEDS ORDERED: DIAZEPAM 5 MG TAB PO PRN ×2 (14:01)
[2018-01-10] MEDS ORDERED: NALOXONE 0.4 MG/ML 1 ML VIAL IV PRN (14:01)
[2018-01-10] MEDS ORDERED: DEXAMETHASONE SOD PHOS (MDV) 100 MG/10 ML VIAL IVP ONE (14:01)
[2018-01-10] MEDS ORDERED: ONDANSETRON 4 MG/2 ML VIAL IVP PRN (14:01)
[2018-01-10] MEDS ORDERED: hydrOXYzine PAMOATE 25 MG CAP PO PRN (14:01)
[2018-01-10] MEDS ORDERED: HYDROcodone/APAP 5-325MG 1 EACH TAB PO PRN (14:01)
[2018-01-10] MEDS ORDERED: MAGNESIUM HYDROXIDE 2,400 MG/10 ML CUP PO PRN (14:01)
[2018-01-10] MEDS ORDERED: HYDROmorphone 1 MG/ML 1 ML SYRINGE IVP PRN ×3 (14:01)
[2018-01-10] MEDS ORDERED: fentaNYL (PF) 50 MCG/ML 2 ML AMP IVP ONE (14:22)
[2018-01-10] MEDS: ROPIVACAINE 246.25 MG, EPINEPHrine 0.5 MG, KETOROLAC 30 MG, cloNIDine HCL/PF 80 MCG, WA... MISCELLANE ONE ×10 (14:55→16:27)
[2018-01-10] MEDS ORDERED: PROPOFOL 10 MG/ML 20 ML VIAL IV ONE (15:28)
[2018-01-10] MEDS ORDERED: HYDROmorphone (PF) 1 MG/ML ONE (15:28)
[2018-01-10] MEDS ORDERED: NEOSTIGMINE 1 MG/ML 10 ML VIAL ONE (15:28)
[2018-01-10] MEDS ORDERED: HEPARIN SODIUM,PORCINE 10,000 UNIT/ML 1 ML VIAL ONE (15:28)
[2018-01-10] MEDS ORDERED: SODIUM CHLORIDE 0.9% 100 ML BAG ONE (15:28)
[2018-01-10] MEDS ORDERED: TRANEXAMIC ACID 1,000 MG/10 ML VIAL ONE (15:28)
[2018-01-10] MEDS ORDERED: GLYCOPYRROLATE 0.2 MG/ML 2 ML VIAL ONE (15:28)
[2018-01-10] MEDS ORDERED: LIDOCAINE 1% INJ 10MG/ML (20 ML MDV) ONE (15:28)
[2018-01-10] MEDS ORDERED: SUCCINYLCHOLINE CHLORIDE VIAL 200 MG/10 ML VIAL IV ONE (15:28)
[2018-01-10] MEDS ORDERED: ePHEDrine SULFATE/0.9% NACL/PF 50 MG/5 ML SYRINGE IV ONE (15:28)
[2018-01-10] MEDS ORDERED: ROCURONIUM BROMIDE 10 MG/ML 10 ML VIAL IV ONE (15:28)
[2018-01-10] MEDS ORDERED: SODIUM CHLORIDE 0.9% IRRIG 1,000 ML BTL IRRIGATION ONE (15:28)
[2018-01-10] MEDS ORDERED: ceFAZolin 3,000 MG in SODIUM CHLORIDE 0.9% IRRIGATIO 3,000 ML IRRIGATION ONE (16:29)
--- NOTE | 2018-01-10 17:41 | P.OP ---
Date of Procedure: 01/10/18 Preoperative Diagnosis: Severe osteoarthritis right hip Postoperative Diagnosis: Severe osteoarthritis right hip Procedure(s) Performed: Right total hip arthroplasty with a direct anterior approach Implants: Lam and nephew Polarstem size 8 standard Lam & Nephew R3, 3 hole acetabular shell, 60 mm Lam & Nephew reflection 6.5 mm cancellus screw, 25 mm 2 Lam & Nephew R3, XLPE 20 acetabular liner Lam & Nephew Oxinium femoral head 36 m, +12 All components were press-fit. The articulation is Oxinium on polyethylene. Anesthesia: GETA Surgeon: Victor Manuel Saunders Brush Trimming Machine Setter #1: Sofya Trinh Estimated Blood Loss (ml): 1,000 (450 mL returned with Cell Saver) Pathology: other (Femoral head) Condition: stable Disposition: PACU Indications for Procedure: After failure of conservative treatment we discussed the surgical and nonsurgical treatment options at length. Patient wishes to proceed with a total hip arthroplasty with a direct anterior approach. Complications specific to this procedure were discussed at length, including but not limited to infection, leg length discrepancy, dislocation, and nerve injury. Patient is aware of all these complications and informed consent was obtained Operative Findings: The operative findings are consistent with severe osteoarthritis of the right hip Description of Procedure: Patient was seen and evaluated in the preoperative area, consent was reviewed, and the surgical site was marked with a skin marker. Patient was then brought to the operating room and given prophylactic antibiotics intravenously. 1 g of Tranexamic acid was also given. A general anesthetic was administered by the anesthesia department. The patient was then placed on the Bode table with the bony prominences well-padded. The hip area was then prepped and draped in usual sterile fashion. A universal timeout was then performed, which confirmed the patient's name, surgical site, ALLERGIES, and procedure being performed. Next the incision site was located at 1 cm distal and 1 cm lateral to the anterior superior iliac spine. The skin and subcutaneous tissues were sharply incised. Incision was carefully dissected down to the fascia overlying the tensor fascia gabriela muscle. This fascia was then incised in line with the incision. Next, using blunt finger dissection, the tensor fascia gabriela muscle was dissected off its investing fascia. The muscle was then carefully retracted laterally with a cobra retractor over the lateral neck of the femur. Next, the circumflex vessels were identified and cauterized using the AquaMantis device. The anterior hip capsule was then exposed. The capsule was then opened and an inverted T fashion. Cobra retractors were then placed intracapsularly. The proximal femur was then visualized. The femoral neck was then osteotomized appropriate level above the lesser trochanter. Small amount of traction was placed with the Bode table. A small wedge of bone was then removed from the remaining femoral head. Next, using a corkscrew femoral head was easily removed from the acetabulum. On gross visual inspection, the femoral head had complete loss of articular cartilage in multiple periarticular osteophytes. Attention was then turned to the acetabulum. the acetabulum was exposed and any remaining labrum was excised. Sequential reaming of the acetabulum was performed using fluoroscopic guidance. When the appropriate size was reached, a trial was then placed. The position and fit of the trial was checked with fluoroscopy. The trial was then removed. Then, using fluoroscopic guidance, the final implant was impacted at 20 of anteversion and 40 of abduction, and fully seated in the acetabulum. 2 screws were then placed in the acetabulum. Again fluoroscopy was used to check position of the screws. Next, the liner was then impacted, with a 20 elevated liner located in the anterior superior quadrant. Component locking was confirmed. Attention was then directed to the femur. With the aid of the Bode table, the femur was externally rotated to approximately 130, extended, and abducted under the opposite leg. A side hook was then placed under the proximal femur, and the side hook elevator was used to elevate the proximal femur. Retractors were then placed. A capsular release was performed, as well as a release of the conjoined tendon, which afforded excellent visualization of the proximal femur. Next, a box osteotome was used to lateralize the proximal femur. A chandelier maker was then used to locate the femoral canal. Sequential broaching was then performed with appropriate size which afforded excellent fixation in the proximal femur. A trial was then placed with appropriate head and neck, and the hip was gently reduced with the aid of the Bode table. Fluoroscopy was then used to check position of the components, as well as to ensure equal leg lengths. The hip was then gently dislocated and the trials were then removed. Final implants were then impacted and the hip was again reduced. Final fluoroscopic x-rays confirmed that the components were in anatomic position, as well as equal leg lengths. The hip was also taken through range of motion, and found to be stable. The hip was then copiously irrigated with antibiotic solution with pulsatile lavage. The hip was then irrigated with Irrisept solution. The soft tissues were then injected with a ropivacaine solution, which consisted of 246.25 mg of ropivacaine, 0.5 mg of epinephrine, 30 mg of Toradol, 80 g of clonidine, and 48.45 mL of sterile water, for a total of 100 mL of fluid injected. A second dose of 1 g of Tranexamic acid was also given. the fascia was then closed with 2-0 strata fix suture. The subcutaneous tissue was closed with 3-0 Vicryl. The subcuticular tissue was closed with 3-0 strata fix suture. The skin was then closed with Dermabond glue and a sterile silver dressing. The patient was then transferred to the recovery room in stable condition. The esol teacher assistant STACY Tavarez was required due to the complexity of surgery, and the need for skilled surgical lead for positioning, draping, exposure, retraction, and closure of the wound.
[2018-01-10] MEDS ORDERED: HYDROmorphone 1 MG/ML 1 ML SYRINGE IVP ONE (18:45)
[2018-01-10] MEDS: SODIUM CHLORIDE 0.9% 1,000 ML IV SCH ×2 (18:47→18:57)
--- NOTE | 2018-01-10 18:55 | XR ---
EXAMINATION TYPE: XR Hip Limited RT DATE OF EXAM: 01/10/2018 COMPARISON: NONE HISTORY: Hip surgery TECHNIQUE: Single view FINDINGS: There is a right hip prosthesis. Components appear in anatomic position. IMPRESSION: No complicating process seen.
--- NOTE | 2018-01-10 19:50 | XR ---
Limited right hip HISTORY: Right hip arthroplasty 3 intraoperative C-arm images document the procedure
[2018-01-10] MEDS: SENNOSIDES-DOCUSATE SODIUM 1 EACH TAB PO SCH (20:36)
[2018-01-10] MEDS ORDERED: ASPIRIN 325 MG TAB PO SCH (21:00)
[2018-01-10] MEDS: HYDROcodone/APAP 5-325MG 1 EACH TAB PO PRN (22:17)
[2018-01-10] MEDS: LACTOBACILLUS ACIDOPH & BULGAR 1 EACH PACKET PO SCH (22:17)
[2018-01-11] MEDS ORDERED: VANCOMYCIN 2,000 MG in SODIUM CHLORIDE 0.9% 500 ML IVPB ONE (01:00)
[2018-01-11] MEDS: HYDROcodone/APAP 5-325MG 1 EACH TAB PO PRN ×3 (03:30→22:42)
[2018-01-11] MEDS: SODIUM CHLORIDE 0.9% 1,000 ML IV SCH ×2 (06:12→23:24)
[2018-01-11 07:59] LABS: Basophils % (A) 0 %; Eosinophils % (A) 0 %; HCT 37.3 % (39.0-53.0); Lymphocytes # (A) 0.7 k/uL (1.0-4.8); Lymphocytes % (A) 6 %; MCV 96.8 fL (80.0-100.0); Mean Platelet Volume 6.9; Monocytes # (A) 0.7 k/uL (0-1.0); Monocytes % (A) 6 %; Neutrophils # (A) 10.1 k/uL (1.3-7.7); Neutrophils % (A) 87 %; Platelet Count 156 k/uL (150-450); RBC 3.85 m/uL (4.30-5.90); WBC 11.7 k/uL (3.8-10.6)
[2018-01-11 08:01] LABS: HGB 12.3 gm/dL (13.0-17.5)
[2018-01-11 08:03] LABS: Anion Gap 7 mmol/L; Blood Urea Nitrogen 27 mg/dL (9-20); Calcium 8.3 mg/dL (8.4-10.2); Carbon Dioxide 24 mmol/L (22-30); Chloride 107 mmol/L (98-107); Glucose 145 mg/dL (74-99); Potassium 5.2 mmol/L (3.5-5.1); Sodium 138 mmol/L (137-145)
--- NOTE | 2018-01-11 08:47 | P.PN ---
Subjective Progress Note Date: 01/11/18 This is an 82-year-old male who is status post right total hip arthroplasty. This is postoperative day #1. Patient was seen and evaluated at bedside with Dr. Victor Manuel Saunders. Patient states that his pain is well controlled. Patient states that he has not been out of bed yet. Patient denies any fever/chills, numbness, weakness, tingling, abdominal pain, shortness of breath or chest pain. Objective - Vital Signs Vital signs: Vital Signs Temp 98.5 F 01/11/18 07:35 Pulse 77 01/11/18 07:35 Resp 16 01/11/18 07:35 BP 112/58 01/11/18 07:35 Pulse Ox 94 L 01/11/18 07:35 Intake & Output 01/10/18 01/11/18 01/11/18 18:59 06:59 18:59 Intake Total 2501 1040 Output Total 1100 350 Balance 1401 690 Intake: IV 2501 Intake, IV Titration 1040 Amount Sodium Chloride 0.9% 1, 1040 000 ml @ 65 mls/hr IV . [id number] [facility] Rx#:[id number] Output: Urine 100 350 Straight 300 Estimated Blood Loss 1000 Other: # Voids 1 - Exam Vital signs are stable. Patient is in no acute distress and is alert and oriented 3. Calf is soft and nontender to palpation. Dressing is clean, dry, and intact. Patient has full foot and ankle motion without pain or difficulty. Neurovascular status and circulatory status are intact. - Labs CBC & Chem 7: 01/11/18 06:32 01/11/18 06:32 Labs: Abnormal Lab Results - Last 24 Hours (Table) 01/11/18 01/11/18 Range/Units 06:32 06:32 WBC 11.7 H (3.8-10.6) k/uL RBC 3.85 L (4.30-5.90) m/uL Hgb 12.3 L D (13.0-17.5) gm/dL Hct 37.3 L (39.0-53.0) % Neutrophils # 10.1 H (1.3-7.7) k/uL Lymphocytes # 0.7 L (1.0-4.8) k/uL Potassium 5.2 H (3.5-5.1) mmol/L BUN 27 H (9-20) mg/dL Glucose 145 H (74-99) mg/dL Calcium 8.3 L (8.4-10.2) mg/dL Assessment and Plan (1) Primary osteoarthritis of right hip Current Visit: Yes Status: Acute Code(s): M16.11 - UNILATERAL PRIMARY OSTEOARTHRITIS, RIGHT HIP SNOMED Code(s): 941993993 (2) S/P total hip arthroplasty Current Visit: Yes Status: Acute Code(s): Z96.649 - PRESENCE OF UNSPECIFIED ARTIFICIAL HIP JOINT SNOMED Code(s): 351142196737 Plan: Continue routine postop care. Continue antocoagulation. Weightbearing as tolerated with a walker Leave dressing in place for 10 days. Possible discharge home tomorrow.
[2018-01-11] MEDS ORDERED: MELOXICAM 7.5 MG TAB PO SCH (09:00)
[2018-01-11] MEDS: amLODIPine 10 MG TAB PO SCH (09:57)
[2018-01-11] MEDS: LACTOBACILLUS ACIDOPH & BULGAR 1 EACH PACKET PO SCH ×3 (09:57→22:42)
[2018-01-11] MEDS: RIVAROXABAN 10 MG TAB PO SCH (09:57)
--- NOTE | 2018-01-11 10:00 | FL ---
Fluoroscopy HISTORY: Right hip arthroplasty 38 seconds fluoroscopy time supplied to the referring clinician. 3 intraoperative C-arm images docum ent the procedure. See dictated report from orthopedic surgery.
--- NOTE | 2018-01-11 11:29 | P.CONS ---
History of Present Illness - Reason for Consult Consult date: 01/11/18 [facility] Requesting physician: Sofya Trinh - Chief Complaint Osteoarthritis of the right hip - History of Present Illness 82-year-old male patient of Dr. Reynaga. Patient presented to the hospital for an elective total right hip arthroplasty with Dr. Saunders. Patient is currently postop day 1. Patient has a known past medical history of osteoporosis, cardiomegaly, hypertension, weakness and urinary tract infection. Patient is currently resting comfortably in bed. Patient does complain that he has not been able to urinate on his own due to retention since surgery. Patient has been started on Flomax. Urinary analysis has been ordered and neurology consult has been placed. This time patient denies chest pain or shortness of breath. Patient denies nausea vomiting or diarrhea. Review of Systems Please refer to HPI otherwise unremarkable Past Medical History Past Medical History: Deep Vein Thrombosis (DVT), Hypertension, Osteoarthritis ( OA) Additional Past Medical History / Comment(s): hx. blood clot in leg back in the 's, recent UTI in October & tx. for, was in [facility] last month for short term rehab after a fall & elbow injury, tx. w/antibiotics for possible C-diff recently by PCP but no stool culture obtained-last culture in October was neg. History of Any Multi-Drug Resistant Organisms: MRSA Year Discovered:: 01-04-2018 MDRO Source:: urine Past Surgical History: Appendectomy, Cholecystectomy Additional Past Surgical History / Comment(s): galstones removed Past Anesthesia/Blood Transfusion Reactions: No Reported Reaction Past Psychological History: No Psychological Hx Reported Smoking Status: Never smoker Past Alcohol Use History: Occasional Past Drug Use History: None Reported - Past Family History Mother Family Medical History: Cancer Medications and Allergies Home Medications Medication Instructions Recorded Confirmed Type Acetaminophen Tab [Tylenol] 650 mg PO Q6HR PRN 01/05/18 01/10/18 History L.acidoph,Paracasei, B.lactis 1 cap PO TID 01/05/18 01/10/18 History [Probiotic] amLODIPine BESYLATE [Norvasc] 10 mg PO DAILY 01/05/18 01/10/18 History Allergies Allergy/AdvReac Type Severity Reaction Status Date / Time No Known Allergies Allergy Verified 01/10/18 16:36 Physical Exam Vitals: Vital Signs Temp Pulse Resp BP Pulse Ox 01/11/18 07:35 98.5 F 77 16 112/58 94 L 01/11/18 00:45 98.3 F 62 18 155/71 100 01/10/18 22:05 74 18 127/78 95 01/10/18 21:50 72 18 126/73 96 01/10/18 21:35 75 18 131/79 96 01/10/18 21:20 73 18 131/77 93 L 01/10/18 21:06 77 18 112/73 97 01/10/18 20:50 81 18 215/67 95 01/10/18 20:35 71 18 113/64 95 01/10/18 20:21 72 16 111/69 94 L 01/10/18 20:06 72 18 117/68 94 L 01/10/18 19:51 66 20 132/68 95 01/10/18 19:35 71 18 128/80 97 01/10/18 19:20 97.8 F 71 18 122/67 96 01/10/18 18:45 79 16 119/63 96 01/10/18 18:30 76 16 112/67 96 01/10/18 18:13 96.9 F L 77 16 109/60 94 L 01/10/18 12:48 98.6 F 90 20 139/77 99 01/10/18 12:46 98.6 F Intake and Output 01/10/18 01/11/18 01/11/18 22:59 06:59 14:59 Intake Total 1901 1040 222 Output Total 1100 350 Balance 801 690 222 Intake: IV 1901 Intake, IV Titration 1040 Amount Sodium Chloride 0.9% 1, 1040 000 ml @ 65 mls/hr IV . [id number] [facility] Rx#:[id number] Oral 222 Output: Urine 100 350 Straight 300 Estimated Blood Loss 1000 Other: # Voids 1 Head normocephalic Neck supple Lungs clear to auscultation bilaterally no wheezing or crackles Heart regular rate and rhythm S1-S2, no rub or gallop Abdomen is soft nontender nondistended positive bowel sounds no hepatosplenomegaly Extremities no edema. Right hip dressing clean dry and intact Neuro alert and orientated to 3 Results CBC & Chem 7: 01/11/18 06:32 01/11/18 06:32 Labs: Abnormal Lab Results - Last 24 Hours (Table) 01/11/18 01/11/18 Range/Units 06:32 06:32 WBC 11.7 H (3.8-10.6) k/uL RBC 3.85 L (4.30-5.90) m/uL Hgb 12.3 L D (13.0-17.5) gm/dL Hct 37.3 L (39.0-53.0) % Neutrophils # 10.1 H (1.3-7.7) k/uL Lymphocytes # 0.7 L (1.0-4.8) k/uL Potassium 5.2 H (3.5-5.1) mmol/L BUN 27 H (9-20) mg/dL Glucose 145 H (74-99) mg/dL Calcium 8.3 L (8.4-10.2) mg/dL Assessment and Plan Assessment: 1. Status post total right hip arthroplasty with Dr. Childress. Patient is postop day 1. Patient states pain is well controlled. Patient currently on Xarelto per services 2. Urinary retention. Patient has been started on Flomax. Urology consult has been placed and analysis has been ordered 3. Leukocytosis White blood cell 11.7. Urinary analysis and C. diff has been ordered 4. History of DVT. Patient states this was back in the 60s 5. History of urinary tract infection. 6. History of falls. Patient recently admitted for fall to left elbow. Patient underwent to [facility] for rehab 7. History of essential hypertension. Continue [facility] Thank you for this consultation we'll continue to follow patient closely throughout stay A.m. labs have been ordered Time with Patient: Greater than 30 (Greater than 60% of the total time spent in counseling and coordination of care. I performed an examination of the patient and discussed their management with the Nurse Practitioner. I have reviewed the Nurse Practitioner's notes and agree with the documented findings and plan of care)
[2018-01-11] MEDS: SENNOSIDES-DOCUSATE SODIUM 1 EACH TAB PO SCH (20:30)
[2018-01-11] MEDS: TAMSULOSIN 0.4 MG CAP.ER.24H PO SCH (20:30)
--- NOTE | 2018-01-11 20:59 | P.GSCN ---
History of Present Illness Consult date: 01/11/18 Reason for Consult: Urinary retention History of present illness: The patient is an 82-year-old male with a history of degenerative arthritis involving the right hip who underwent a right total hip arthroplasty through an anterior approach on 01/10/2018. The surgery was performed in the late afternoon. The patient was unable to void during the evening and was in and out cathed for approximately 300 mL at 1 AM today. Since then he has voided only small amounts. A bladder scan was performed at approximately 12:00 and showed 240 mL. The patient was not uncomfortable at that point. He has been started on tamsulosin 0.4 mg daily. I was asked to see the patient due to the urinary retention. The patient denies any previous history of urinary retention. He says he usually voids every 3-4 hours during the day and twice at night. He describes a moderate urinary flow but occasionally has sensations of incomplete bladder emptying. He denied any dysuria or urgency at the time of admission. A preoperative urine culture from 01/02/2018 grew 50-100,000 colonies of MRSA but it's unclear if the patient was treated for this. He believes he had a urinary tract infection while in this hospital during 10/2017 but a urine culture at that time showed no growth. He thinks he has a history of kidney stones but could not recall how these were treated. He says he developed diarrhea secondary to C. diff related to antibiotic use earlier this summer but says that his bowels had been moving relatively well recently. He has had no bowel movement in the last 2 days however. Review of Systems - Constitutional Denies chills, Denies fever - Cardiovascular Denies chest pain, Denies shortness of breath - Respiratory Denies cough, Denies wheezing - Gastrointestinal Denies abdominal pain - Genitourinary Reports as per HPI Past Medical History Past Medical History: Deep Vein Thrombosis (DVT), Hypertension, Osteoarthritis ( OA) Additional Past Medical History / Comment(s): hx. blood clot in leg back in the 60's, recent UTI in October & tx. for, was in [facility] last month for short term rehab after a fall & elbow injury, tx. w/antibiotics for possible C-diff recently by PCP but no stool culture obtained-last culture in October was neg. History of Any Multi-Drug Resistant Organisms: MRSA Year Discovered:: 01-04-2018 MDRO Source:: urine Past Surgical History: Appendectomy, Cholecystectomy Past Anesthesia/Blood Transfusion Reactions: No Reported Reaction Past Psychological History: No Psychological Hx Reported Smoking Status: Never smoker Past Alcohol Use History: Occasional Past Drug Use History: None Reported - Past Family History Mother Family Medical History: Cancer Medications and Allergies Home Medications Medication Instructions Recorded Confirmed Type Acetaminophen Tab [Tylenol] 650 mg PO Q6HR PRN 01/05/18 01/10/18 History L.acidoph,Paracasei, B.lactis 1 cap PO TID 01/05/18 01/10/18 History [Probiotic] amLODIPine BESYLATE [Norvasc] 10 mg PO DAILY 01/05/18 01/10/18 History Allergies Allergy/AdvReac Type Severity Reaction Status Date / Time No Known Allergies Allergy Verified 01/10/18 16:36 Surgical - Exam Vital Signs Temp 98.6 F 01/10/18 12:46 - General well developed, well nourished, obese - ENT no hearing loss - Neck no masses, no lymphadectomy - Respiratory normal respiratory effort - Abdomen Abdomen: soft, non tender, no organomegaly Hernia: umbilical - Genitourinary normal penis with no external lesions, testicles non-tender, other (Prostate is 1-2+ enlarged, smooth and benign to palpation.) - Rectum Rectum: normal sphincter tone, mass - Psychiatric oriented to time, oriented to place, speech is normal Results - Labs 01/11/18 06:32 01/11/18 06:32 Abnormal Lab Results - Last 24 Hours (Table) 01/11/18 01/11/18 Range/Units 06:32 06:32 WBC 11.7 H (3.8-10.6) k/uL RBC 3.85 L (4.30-5.90) m/uL Hgb 12.3 L D (13.0-17.5) gm/dL Hct 37.3 L (39.0-53.0) % Neutrophils # 10.1 H (1.3-7.7) k/uL Lymphocytes # 0.7 L (1.0-4.8) k/uL Potassium 5.2 H (3.5-5.1) mmol/L BUN 27 H (9-20) mg/dL Glucose 145 H (74-99) mg/dL Calcium 8.3 L (8.4-10.2) mg/dL Diabetes panel 01/11/18 Range/Units 06:32 Sodium 138 (137-145) mmol/L Potassium 5.2 H (3.5-5.1) mmol/L Chloride 107 (98-107) mmol/L Carbon Dioxide 24 (22-30) mmol/L BUN 27 H (9-20) mg/dL Creatinine 0.83 (0.66-1.25) mg/dL Glucose 145 H (74-99) mg/dL Calcium 8.3 L (8.4-10.2) mg/dL Calcium panel 01/11/18 Range/Units 06:32 Calcium 8.3 L (8.4-10.2) mg/dL Pituitary panel 01/11/18 Range/Units 06:32 Sodium 138 (137-145) mmol/L Potassium 5.2 H (3.5-5.1) mmol/L Chloride 107 (98-107) mmol/L Carbon Dioxide 24 (22-30) mmol/L BUN 27 H (9-20) mg/dL Creatinine 0.83 (0.66-1.25) mg/dL Glucose 145 H (74-99) mg/dL Calcium 8.3 L (8.4-10.2) mg/dL Adrenal panel 01/11/18 Range/Units 06:32 Sodium 138 (137-145) mmol/L Potassium 5.2 H (3.5-5.1) mmol/L Chloride 107 (98-107) mmol/L Carbon Dioxide 24 (22-30) mmol/L BUN 27 H (9-20) mg/dL Creatinine 0.83 (0.66-1.25) mg/dL Glucose 145 H (74-99) mg/dL Calcium 8.3 L (8.4-10.2) mg/dL Assessment and Plan Assessment: The source of the patient's urinary retention is unclear. He did have mild to moderate symptoms of bladder outflow obstruction preoperatively. He has been started on tamsulosin and will be in and out cathed if he cannot void later today. If he continues to be unable to to void a Orozco catheter will be inserted and he'll be given another voiding trial later in the week.
[2018-01-12 00:42] LABS: Appearance,Urine Clear (Clear); Bacteria,Urine Rare /hpf; Bilirubin,Urine Negative (Negative); Blood,Urine Trace (Negative); Color,Urine Yellow; Glucose,Urine (UA) Negative (Negative); Hyaline Casts,Urine 3 /lpf (0-2); Ketones,Urine Negative (Negative); Leukocyte Esterase,Urine Small (Negative); Mucus,Urine Rare /hpf; Nitrite,Urine Negative (Negative); PH, Urine 5.5 (5.0-8.0); Protein,Urine Trace (Negative); RBC,Urine 12 /hpf (0-5); Specific Gravity,Urine 1.022 (1.001-1.035); Squamous Epithelial Cell,Urine 1 /hpf (0-4); Urobilinogen,Urine <2.0 mg/dL (<2.0); WBC,Urine 3 /hpf (0-5)
[2018-01-12 07:47] LABS: Albumin 2.8 g/dL (3.5-5.0); Potassium 4.3 mmol/L (3.5-5.1); Total Bilirubin 0.5 mg/dL (0.2-1.3); Total Protein 5.1 g/dL (6.3-8.2)
--- NOTE | 2018-01-12 08:15 | P.PN ---
Subjective Progress Note Date: 01/12/18 This is an 82-year-old male who is status post right total hip arthroplasty. This is postoperative day #2. Patient states that he was able to get out of bed yesterday, but has not walked yet. Patient states that his pain is under control. Patient denies any fever/chills, numbness, weakness, tingling, abdominal pain, shortness of breath or chest pain. Objective - Vital Signs Vital signs: Vital Signs Temp 98.7 F 01/12/18 08:01 Pulse 104 H 01/12/18 08:01 Resp 16 01/12/18 08:01 BP 114/59 01/12/18 08:01 Pulse Ox 94 L 01/12/18 08:01 Intake & Output 01/11/18 01/12/18 01/12/18 18:59 06:59 18:59 Intake Total 2186.5 715 Output Total 200 410 Balance 1986.5 305 Intake: Intake, IV Titration 422.5 715 Amount Sodium Chloride 0.9% 1, 422.5 715 000 ml @ 65 mls/hr IV . [id number] [facility] Rx#:[id number] Oral 1764 Output: Urine 200 410 Other: Voiding Method Urinal Urinal # Voids 2 - Exam Vital signs are stable. Patient is in no acute distress and is alert and oriented 3. Calf is soft and nontender to palpation. Dressing is clean, dry, and intact. Patient has full foot and ankle motion without pain or difficulty. Neurovascular status and circulatory status are intact. - Labs CBC & Chem 7: 01/11/18 06:32 01/12/18 06:19 Labs: Abnormal Lab Results - Last 24 Hours (Table) 01/12/18 01/12/18 Range/Units 00:15 06:19 BUN 33 H (9-20) mg/dL Glucose 138 H (74-99) mg/dL Calcium 8.0 L (8.4-10.2) mg/dL Total Protein 5.1 L (6.3-8.2) g/dL Albumin 2.8 L (3.5-5.0) g/dL Urine Protein Trace H (Negative) Urine Blood Trace H (Negative) Ur Leukocyte Esterase Small H (Negative) Urine RBC 12 H (0-5) /hpf Urine Bacteria Rare H (None) /hpf Hyaline Casts 3 H (0-2) /lpf Urine Mucus Rare H (None) /hpf Assessment and Plan (1) Primary osteoarthritis of right hip Current Visit: Yes Status: Acute Code(s): M16.11 - UNILATERAL PRIMARY OSTEOARTHRITIS, RIGHT HIP SNOMED Code(s): 715855882 (2) S/P total hip arthroplasty Current Visit: Yes Status: Acute Code(s): Z96.649 - PRESENCE OF UNSPECIFIED ARTIFICIAL HIP JOINT SNOMED Code(s): 032107963402 Plan: Continue routine postop care. Continue antocoagulation with Xarelto. Weightbearing as tolerated with a walker. Leave dressing in place for 10 days. Possible discharge to rehab tomorrow.
[2018-01-12 09:12] LABS: Basophils % (A) 0 %; Eosinophils # (A) 0.1 k/uL (0-0.7); Eosinophils % (A) 1 %; HCT 29.5 % (39.0-53.0); Lymphocytes # (A) 0.9 k/uL (1.0-4.8); Lymphocytes % (A) 15 %; MCH 32.3 pg (25.0-35.0); MCHC 33.8 g/dL (31.0-37.0); MCV 95.6 fL (80.0-100.0); Mean Platelet Volume 7.7; Monocytes # (A) 0.5 k/uL (0-1.0); Monocytes % (A) 9 %; Neutrophils # (A) 4.2 k/uL (1.3-7.7); Neutrophils % (A) 74 %; Platelet Count 129 k/uL (150-450); RBC 3.09 m/uL (4.30-5.90); RDW 14.2 % (11.5-15.5); WBC 5.7 k/uL (3.8-10.6)
[2018-01-12] MEDS: HYDROcodone/APAP 5-325MG 1 EACH TAB PO PRN ×2 (10:25→15:44)
[2018-01-12] MEDS: FAMOTIDINE 20 MG TAB PO SCH (10:27)
[2018-01-12] MEDS: TAMSULOSIN 0.4 MG CAP.ER.24H PO SCH ×2 (10:27→20:49)
[2018-01-12] MEDS: LACTOBACILLUS ACIDOPH & BULGAR 1 EACH PACKET PO SCH ×3 (10:27→21:50)
[2018-01-12] MEDS: RIVAROXABAN 10 MG TAB PO SCH (10:27)
[2018-01-12] MEDS: amLODIPine 10 MG TAB PO SCH (10:29)
--- NOTE | 2018-01-12 10:31 | P.PN ---
Subjective Progress Note Date: 01/12/18 82-year-old male patient of Dr. Reynaga. Patient presented to the hospital for an elective total right hip arthroplasty with Dr. Saunders. Patient is currently postop day 1. Patient has a known past medical history of osteoporosis, cardiomegaly, hypertension, weakness and urinary tract infection. Patient is currently resting comfortably in bed. Patient does complain that he has not been able to urinate on his own due to retention since surgery. Patient has been started on Flomax. Urinary analysis has been ordered and neurology consult has been placed. This time patient denies chest pain or shortness of breath. Patient denies nausea vomiting or diarrhea. On 01/12/2018 patient is currently alert and oriented 3. Patient is postop day 2. Patient does express that he is frustrated with not being urinate some. Dr. Gallegos following for urology. Plan to continue straight cathing and assess for possible Orozco catheter insertion if unable to void on own per urology. Patient denies chest pain or shortness of breath. Patient denies any urinary burning or frequency patient denies nausea vomiting or diarrhea Objective - Vital Signs Vital signs: Vital Signs Temp 98.7 F 01/12/18 08:01 Pulse 104 H 01/12/18 08:01 Resp 16 01/12/18 08:01 BP 114/59 01/12/18 08:01 Pulse Ox 94 L 01/12/18 08:01 Intake & Output 01/11/18 01/12/18 01/12/18 18:59 06:59 18:59 Intake Total 2186.5 715 Output Total 200 410 Balance 1986.5 305 Intake: Intake, IV Titration 422.5 715 Amount Sodium Chloride 0.9% 1, 422.5 715 000 ml @ 65 mls/hr IV . [id number] [facility] Rx#:[id number] Oral 1764 Output: Urine 200 410 Other: Voiding Method Urinal Urinal # Voids 2 - Exam Head normocephalic Neck supple Lungs clear to auscultation bilaterally no wheezing or crackles Heart regular rate and rhythm S1-S2, no rub or gallop Abdomen is soft nontender nondistended positive bowel sounds no hepatosplenomegaly Extremities no edema Neuro alert and orientated to 3 - Labs CBC & Chem 7: 01/12/18 06:19 01/12/18 06:19 Labs: Abnormal Lab Results - Last 24 Hours (Table) 01/12/18 01/12/18 01/12/18 Range/Units 00:15 06:19 06:19 RBC 3.09 L (4.30-5.90) m/uL Hgb 10.0 L D (13.0-17.5) gm/dL Hct 29.5 L (39.0-53.0) % Plt Count 129 L (150-450) k/uL Lymphocytes # 0.9 L (1.0-4.8) k/uL BUN 33 H (9-20) mg/dL Glucose 138 H (74-99) mg/dL Calcium 8.0 L (8.4-10.2) mg/dL Total Protein 5.1 L (6.3-8.2) g/dL Albumin 2.8 L (3.5-5.0) g/dL Urine Protein Trace H (Negative) Urine Blood Trace H (Negative) Ur Leukocyte Esterase Small H (Negative) Urine RBC 12 H (0-5) /hpf Urine Bacteria Rare H (None) /hpf Hyaline Casts 3 H (0-2) /lpf Urine Mucus Rare H (None) /hpf Assessment and Plan Assessment: 1. Status post total right hip arthroplasty with Dr. Childress. Patient is postop day 1. Patient states pain is well controlled. Patient currently on Xarelto per ortho services 2. Urinary retention. Patient has been started on Flomax. Urology consult has been placed and analysis has been ordered. Per urology if patient continues to be unable to void a Orozco catheter will be inserted be given another voiding trial later this week 3. Leukocytosis White blood cell 11.7. Urinary analysis and C. diff has been ordered. Urinary analysis showing a small amount of leukocyte Estrace. Urine culture ordered. White blood cell improving to 5.7 4. History of DVT. Patient states this was back in the 60s 5. History of urinary tract infection. 6. History of falls. Patient recently admitted for fall to left elbow. Patient underwent to [facility] for rehab 7. History of essential hypertension. Continue [facility] Thank you for this consultation we'll continue to follow patient closely throughout stay A.m. labs have been ordered DVT prophylaxis Xarelto. GI prophylaxis Pepcid Anticipate possible discharge to rehab in the next 24-48 hours depending upon urology recommendation I performed an examination of the patient and discussed their management with the Nurse Practitioner. I have reviewed the Nurse Practitioner's notes and agree with the documented findings and plan of care
[2018-01-12] MEDS: SODIUM CHLORIDE 0.9% 1,000 ML IV SCH (15:46)
[2018-01-12] MEDS: SENNOSIDES-DOCUSATE SODIUM 1 EACH TAB PO SCH (20:49)
[2018-01-13] MEDS: HYDROcodone/APAP 5-325MG 1 EACH TAB PO PRN ×3 (03:59→21:26)
[2018-01-13] MEDS: SODIUM CHLORIDE 0.9% 1,000 ML IV SCH ×2 (04:01→14:28)
[2018-01-13 07:48] LABS: Basophils % (A) 0 %; Eosinophils # (A) 0.1 k/uL (0-0.7); Eosinophils % (A) 1 %; HCT 26.2 % (39.0-53.0); HGB 8.6 gm/dL (13.0-17.5); Lymphocytes # (A) 0.8 k/uL (1.0-4.8); Lymphocytes % (A) 15 %; MCH 31.3 pg (25.0-35.0); MCHC 32.8 g/dL (31.0-37.0); MCV 95.6 fL (80.0-100.0); Mean Platelet Volume 7.7; Monocytes # (A) 0.4 k/uL (0-1.0); Monocytes % (A) 7 %; Neutrophils # (A) 4.2 k/uL (1.3-7.7); Neutrophils % (A) 76 %; Platelet Count 116 k/uL (150-450); RBC 2.74 m/uL (4.30-5.90); RDW 13.9 % (11.5-15.5); WBC 5.5 k/uL (3.8-10.6)
[2018-01-13 08:01] LABS: ALT 22 U/L (21-72); AST 37 U/L (17-59); Albumin 2.5 g/dL (3.5-5.0); Alkaline Phosphatase 40 U/L (38-126); Anion Gap 6 mmol/L; Blood Urea Nitrogen 24 mg/dL (9-20); Calcium 7.8 mg/dL (8.4-10.2); Carbon Dioxide 23 mmol/L (22-30); Chloride 109 mmol/L (98-107); Glucose 120 mg/dL (74-99); Sodium 138 mmol/L (137-145); Total Bilirubin 0.9 mg/dL (0.2-1.3); Total Protein 4.8 g/dL (6.3-8.2)
--- NOTE | 2018-01-13 08:20 | P.DS ---
Providers Date of admission: 01/10/18 11:23 Expected date of discharge: 01/13/18 Attending physician: Victor Manuel Saunders Consults: 01/10/18 14:01 Consult Physician Routine Consulting Provider: Cammy Duff Consult Reason/Comments: medical management Do you want consulting provider notified?: Yes 01/11/18 10:26 Consult Physician Routine Consulting Provider: Arthur Hawkins Consult Reason/Comments: urinary retention Do you want consulting provider notified?: Yes Primary care physician: Michelle Reynaga - Discharge Diagnosis(es) (1) Primary osteoarthritis of right hip Current Visit: Yes Status: Acute (2) S/P total hip arthroplasty Current Visit: Yes Status: Acute Hospital Course: This is an 82-year-old male with known history of degenerative arthritis of the right hip. The patient presents for evaluation. After discussion and consideration patient elects to proceed with total hip arthroplasty. The patient is seen preoperatively by Dr. Saunders and medically cleared for surgery by their primary care physician. Patient is admitted to [facility] on 01/10/2018 for total hip arthroplasty. The procedures performed without complication or sequelae. The patient is doing well postoperatively. Labs and vital signs are stable on day of discharge. Patient has had trouble with urinary retention and has been followed by urology during this admission. On day of discharge patient's hip incision is healing well. There is minimal erythema. There is no drainage noted at this time. There is minimal soft tissue swelling to the hip and thigh. Patient has full foot and ankle motion without difficulty or pain. Neurovascular status to the right lower extremity is intact. Patient is discharged to rehab in good condition. Please see med rec for accurate list of home medications. Plan - Discharge Summary Discharge Rx Participant: Yes New Discharge Prescriptions: New HYDROcodone/APAP 5-325MG [[place] 5-325] 1 - 2 tab PO Q4-6H PRN #84 tab PRN Reason: Pain Rivaroxaban [Xarelto] 10 mg PO DAILY #30 tab Sennosides [Senokot] 1 tab PO BID #60 tablet No Action Acetaminophen Tab [Tylenol] 650 mg PO Q6HR PRN PRN Reason: Pain amLODIPine BESYLATE [Norvasc] 10 mg PO DAILY L.acidoph,Paracasei, B.lactis [Probiotic] 1 cap PO TID Discharge Medication List Acetaminophen Tab [Tylenol] 650 mg PO Q6HR PRN 01/05/18 [History] L.acidoph,Paracasei, B.lactis [Probiotic] 1 cap PO TID 01/05/18 [History] amLODIPine BESYLATE [Norvasc] 10 mg PO DAILY 01/05/18 [History] HYDROcodone/APAP 5-325MG [[place] 5-325] 1 - 2 tab PO Q4-6H PRN #84 tab 01/13/18 [ Rx] Rivaroxaban [Xarelto] 10 mg PO DAILY #30 tab 01/13/18 [Rx] Sennosides [Senokot] 1 tab PO BID #60 tablet 01/13/18 [Rx] Follow up Appointment(s)/Referral(s): Victor Manuel Saunders DO [Doctor of Osteopathic Medicine] - 01/25/18 2:50 pm Activity/Diet/Wound Care/Special Instructions: Weightbearing as tolerated with walker Leave dressing intact. Dressing may be removed by home care nurse in 10 days. May shower with dressing on. Follow-up with [facility] in 2 weeks, please call with any questions or concerns [phone] Discharge Disposition: TRANSFER TO SNF/ECF
[2018-01-13] MEDS: amLODIPine 10 MG TAB PO SCH (08:28)
[2018-01-13] MEDS: TAMSULOSIN 0.4 MG CAP.ER.24H PO SCH ×2 (08:28→21:22)
[2018-01-13] MEDS: FAMOTIDINE 20 MG TAB PO SCH (08:29)
[2018-01-13] MEDS: LACTOBACILLUS ACIDOPH & BULGAR 1 EACH PACKET PO SCH ×3 (08:29→21:22)
[2018-01-13] MEDS: RIVAROXABAN 10 MG TAB PO SCH (08:29)
[2018-01-13] MEDS ORDERED: VANCOMYCIN IV PER PHARMACY 1 EACH MISC MISCELLANE PRN (13:54)
--- NOTE | 2018-01-13 14:23 | P.PN ---
Subjective Progress Note Date: 01/13/18 82-year-old male patient of Dr. Reynaga. Patient presented to the hospital for an elective total right hip arthroplasty with Dr. Saunders. Patient is currently postop day 1. Patient has a known past medical history of osteoporosis, cardiomegaly, hypertension, weakness and urinary tract infection. Patient is currently resting comfortably in bed. Patient does complain that he has not been able to urinate on his own due to retention since surgery. Patient has been started on Flomax. Urinary analysis has been ordered and neurology consult has been placed. This time patient denies chest pain or shortness of breath. Patient denies nausea vomiting or diarrhea. On 01/12/2018 patient is currently alert and oriented 3. Patient is postop day 2. Patient does express that he is frustrated with not being urinate some. Dr. Gallegos following for urology. Plan to continue straight cathing and assess for possible Orozco catheter insertion if unable to void on own per urology. Patient denies chest pain or shortness of breath. Patient denies any urinary burning or frequency patient denies nausea vomiting or diarrhea On 01/13/2018 patient is alert and oriented 3. Patient is postop day 3. Patient currently has Orozco catheter to aid in urinary retention. Patient treated for recent urinary tract infection with MRSA on 01/02. Patient UA positive for infection during this admit. Urine culture has been ordered. Antibiotics switched to vancomycin. Patient also having low-grade temps 99.5. Per patient and family. Patient was recently treated for C. diff outpatient. Per family patient was actually never tested positive for C. diff. C. diff completed here in hospital on 11/11 and was negative. Repeat C. diff has been ordered. At this time patient denies chest pain or shortness of breath. Patient does complain of increased swelling to right leg. Venous Doppler has been ordered. Patient denies nausea vomiting or diarrhea. Does complain of decreased appetite. Patient denies any urinary burning or frequency complain he is still having retention issues. Objective - Vital Signs Vital signs: Vital Signs Temp 99.5 F 01/13/18 08:25 Pulse 84 01/13/18 08:25 Resp 16 01/13/18 08:25 BP 115/59 01/13/18 08:25 Pulse Ox 93 L 01/13/18 08:25 Intake & Output 01/12/18 01/13/18 01/13/18 18:59 06:59 18:59 Intake Total 820 650 Output Total 750 800 Balance 70 -150 Intake: IV 520 650 Sodium Chloride 0.9% 1, 520 650 000 ml @ 65 mls/hr IV . [id number] [facility] Rx#:[id number] Oral 300 Output: Urine 750 800 Straight 800 Other: Voiding Method Indwelling Catheter Indwelling Catheter Indwelling Catheter - Exam Head normocephalic Neck supple Lungs clear to auscultation bilaterally no wheezing or crackles Heart regular rate and rhythm S1-S2, no rub or gallop Abdomen is soft nontender nondistended positive bowel sounds no hepatosplenomegaly Extremities no edema. Right hip dressing clean dry and intact. Right leg increased edema Neuro alert and orientated to 3 - Labs CBC & Chem 7: 01/13/18 06:32 01/13/18 06:32 Labs: Abnormal Lab Results - Last 24 Hours (Table) 01/13/18 01/13/18 Range/Units 06:32 06:32 RBC 2.74 L (4.30-5.90) m/uL Hgb 8.6 L (13.0-17.5) gm/dL Hct 26.2 L (39.0-53.0) % Plt Count 116 L (150-450) k/uL Lymphocytes # 0.8 L (1.0-4.8) k/uL Chloride 109 H (98-107) mmol/L BUN 24 H (9-20) mg/dL Glucose 120 H (74-99) mg/dL Calcium 7.8 L (8.4-10.2) mg/dL Total Protein 4.8 L (6.3-8.2) g/dL Albumin 2.5 L (3.5-5.0) g/dL Microbiology - Last 24 Hours (Table) 01/12/18 00:15 Urine Culture - Final Urine,Voided Assessment and Plan Assessment: 1. Status post total right hip arthroplasty with Dr. Childress. Patient is postop day 2. Patient states pain is well controlled. Patient currently on Xarelto per ortho services 2. Urinary retention. Patient has been started on Flomax. Urology consult has been placed and analysis has been ordered. Per urology if patient continues to be unable to void a Orozco catheter will be inserted be given another voiding trial later this week. Orozco catheter has been placed, patient remains on Flomax. 3. Leukocytosis White blood cell 11.7. Urinary analysis and C. diff has been ordered. Urinary analysis showing a small amount of leukocyte Estrace. Urine culture ordered. White blood cell improving to 5.7. Due to patient's history of recent UTI with MRSA patient's antibiotics switched to vancomycin. Awaiting culture results. C. diff has been ordered 4. History of DVT. Patient states this was back in the 60s 5. History of urinary tract infection. 6. History of falls. Patient recently admitted for fall to left elbow. Patient underwent to [facility] for rehab 7. History of essential hypertension. Continue Norvasc 8. Recent UTI with MRSA. Urine culture positive for MRSA on 01/02. Repeat urine culture for this admission has been ordered 9. Recent treatment for C. diff per family. C. diff sample completed here in hospital on 11/11 and was negative. Per family patient was treated for C. diff infection but never tested positive. C. diff sample has been ordered. 10. Increased right leg edema. Venous Doppler has been ordered 11. Expected acute blood loss anemia secondary to surgery. Hemoglobin decreasing to 8.6. No active signs of bleeding at this time. Iron studies have been ordered. Patient started on ferrous sulfate Thank you for this consultation we'll continue to follow patient closely throughout stay A.m. labs have been ordered DVT prophylaxis Xarelto. GI prophylaxis Pepcid I performed an examination of the patient and discussed their management with the Nurse Practitioner. I have reviewed the Nurse Practitioner's notes and agree with the documented findings and plan of care
[2018-01-13] MEDS ORDERED: VANCOMYCIN 2,500 MG in SODIUM CHLORIDE 0.9% 500 ML IVPB ONE (15:00)
--- NOTE | 2018-01-13 16:02 | US ---
EXAMINATION TYPE: US venous doppler duplex LE DATE OF EXAM: 01/13/2018 3:26 PM COMPARISON: NONE CLINICAL HISTORY: right leg swelling. SIDE PERFORMED: Bilateral TECHNIQUE: The lower extremity deep venous system is examined utilizing real time linear array sonog radha with graded compression, doppler sonography and color-flow sonography. VESSELS IMAGED: External Iliac Vein (EIV)- not seen due to body habitus Common Femoral Vein Deep Femoral Vein Greater Saphenous Vein *-not seen Femoral Vein Popliteal Vein Small Saphenous Vein * Proximal Calf Veins-not seen due to body habitus and swelling (* superficial vessels) The exam is limited technically. Right Leg: Very limited views, appears negative from CFV to distal femoral vein. Unable to view for compression pictures below proximal femoral vein. Left Leg: Positive for DVT at level of common femoral vein and DFV bifurcation, only able to visuali zed femoral vein with doppler in a limited capacity below proximal. Unable to view for compression pi ctures below proximal femoral vein. Small saphenous vein also shows thrombus within. IMPRESSION: The exam is limited due to patient's inability to cooperate with exam. Deep venous thr ombosis left lower extremity as described. Results relayed to patient's nurse Bettie at the time of i nterpretation at exam telephonically.
[2018-01-13 16:05] LABS: Iron Saturation 6.18 (15.00-50.00)
[2018-01-13] MEDS: RIVAROXABAN 15 MG TAB PO SCH (18:27)
[2018-01-13] MEDS: FERROUS SULFATE 325 MG TAB PO SCH (21:22)
[2018-01-13] MEDS: SENNOSIDES-DOCUSATE SODIUM 1 EACH TAB PO SCH (21:22)
[2018-01-14] MEDS ORDERED: DILTIAZEM 50 MG in SODIUM CHLORIDE 0.9% 40 ML IV SCH (01:00)
[2018-01-14] MEDS ORDERED: VANCOMYCIN 2,000 MG in SODIUM CHLORIDE 0.9% 500 ML IVPB SCH (06:00)
[2018-01-14 06:12] LABS: Albumin 2.7 g/dL (3.5-5.0); Calcium 8.2 mg/dL (8.4-10.2); Magnesium 2.1 mg/dL (1.6-2.3); Potassium 3.8 mmol/L (3.5-5.1); Total Protein 5.3 g/dL (6.3-8.2)
[2018-01-14] MEDS: RIVAROXABAN 15 MG TAB PO SCH (06:34)
--- NOTE | 2018-01-14 08:14 | P.PN ---
Subjective Progress Note Date: 01/14/18 This is an 82-year-old male who is status post right total hip arthroplasty. This is postoperative day #4. Patient went into A. fib with RVR yesterday and was transferred to [facility] care. Today patient states that his pain is under control. Patient was also diagnosed with left lower extremity DVT and xarelto was increased. Patient denies any fever/chills, numbness, weakness, tingling, abdominal pain, shortness of breath or chest pain. Objective - Vital Signs Vital signs: Vital Signs Temp 96.9 F L 01/14/18 03:00 Pulse 96 01/14/18 03:00 Resp 18 01/14/18 03:00 BP 110/61 01/14/18 03:00 Pulse Ox 98 01/14/18 03:00 Intake & Output 01/13/18 01/14/18 01/14/18 18:59 06:59 18:59 Intake Total 874 Output Total 300 250 Balance 574 -250 Weight 98.7 kg Intake: IV 520 Sodium Chloride 0.9% 1, 520 000 ml @ 65 mls/hr IV . [id number] [facility] Rx#:[id number] Oral 354 Output: Urine 300 250 Straight 250 Other: Voiding Method Indwelling Catheter Indwelling Catheter - Exam Vital signs are stable. Patient is in no acute distress and is alert and oriented 3. Calf is soft and nontender to palpation. There is swelling to the right thigh. Compartments are soft. Dressing is clean, dry, and intact. Patient has full foot and ankle motion without pain or difficulty. Neurovascular status and circulatory status are intact. - Labs CBC & Chem 7: 01/13/18 06:32 01/14/18 04:58 Labs: Abnormal Lab Results - Last 24 Hours (Table) 01/13/18 01/14/18 Range/Units 06:32 04:58 Sodium 136 L (137-145) mmol/L Carbon Dioxide 21 L (22-30) mmol/L BUN 28 H (9-20) mg/dL Glucose 171 H (74-99) mg/dL Calcium 8.2 L (8.4-10.2) mg/dL Iron 11 L (65-175) ug/dL TIBC 178 L (228-460) ug/dL Iron Saturation 6.18 L (15.00-50.00) Ferritin 406.2 H (22.0-322.0) ng/mL AST 60 H (17-59) U/L Total Protein 5.3 L (6.3-8.2) g/dL Albumin 2.7 L (3.5-5.0) g/dL Microbiology - Last 24 Hours (Table) 01/12/18 00:15 Urine Culture - Final Urine,Voided Assessment and Plan (1) Primary osteoarthritis of right hip Current Visit: Yes Status: Acute Code(s): M16.11 - UNILATERAL PRIMARY OSTEOARTHRITIS, RIGHT HIP SNOMED Code(s): 140820801 (2) S/P total hip arthroplasty Current Visit: Yes Status: Acute Code(s): Z96.649 - PRESENCE OF UNSPECIFIED ARTIFICIAL HIP JOINT SNOMED Code(s): 409305942071 Plan: Continue routine postop care. Continue antocoagulation with Xarelto. Weightbearing as tolerated with a walker. Leave dressing in place for 10 days. Appreciate input from medicine. Likely discharge to rehab when medically stable.
[2018-01-14] MEDS: amLODIPine 10 MG TAB PO SCH (09:15)
[2018-01-14] MEDS: FAMOTIDINE 20 MG TAB PO SCH (09:15)
[2018-01-14] MEDS: LACTOBACILLUS ACIDOPH & BULGAR 1 EACH PACKET PO SCH (09:15)
[2018-01-14] MEDS: FERROUS SULFATE 325 MG TAB PO SCH (09:15)
[2018-01-14] MEDS: TAMSULOSIN 0.4 MG CAP.ER.24H PO SCH (09:16)
[2018-01-14] MEDS: HYDROcodone/APAP 5-325MG 1 EACH TAB PO PRN (09:16)
--- NOTE | 2018-01-14 10:06 | P.PN ---
Subjective Progress Note Date: 01/14/18 82-year-old male patient of Dr. Reynaga. Patient presented to the hospital for an elective total right hip arthroplasty with Dr. Saunders. Patient is currently postop day 1. Patient has a known past medical history of osteoporosis, cardiomegaly, hypertension, weakness and urinary tract infection. Patient is currently resting comfortably in bed. Patient does complain that he has not been able to urinate on his own due to retention since surgery. Patient has been started on Flomax. Urinary analysis has been ordered and neurology consult has been placed. This time patient denies chest pain or shortness of breath. Patient denies nausea vomiting or diarrhea. On 01/12/2018 patient is currently alert and oriented 3. Patient is postop day 2. Patient does express that he is frustrated with not being urinate some. Dr. Gallegos following for urology. Plan to continue straight cathing and assess for possible Orozco catheter insertion if unable to void on own per urology. Patient denies chest pain or shortness of breath. Patient denies any urinary burning or frequency patient denies nausea vomiting or diarrhea On 01/13/2018 patient is alert and oriented 3. Patient is postop day 3. Patient currently has Orozco catheter to aid in urinary retention. Patient treated for recent urinary tract infection with MRSA on 01/02. Patient UA positive for infection during this admit. Urine culture has been ordered. Antibiotics switched to vancomycin. Patient also having low-grade temps 99.5. Per patient and family. Patient was recently treated for C. diff outpatient. Per family patient was actually never tested positive for C. diff. C. diff completed here in hospital on 11/11 and was negative. Repeat C. diff has been ordered. At this time patient denies chest pain or shortness of breath. Patient does complain of increased swelling to right leg. Venous Doppler has been ordered. Patient denies nausea vomiting or diarrhea. Does complain of decreased appetite. Patient denies any urinary burning or frequency complain he is still having retention issues. On 01/14/2018 patient is alert and oriented 3 he was seen and examined on the 6 floor, through the night he had new onset atrial fibrillation with an episode of atrial fibrillation with rapid ventricular response, he was started on Cardizem drip and transferred to telemetry floor, cardiology consult was requested, patient also had positive DVT in the left lower extremity, dose of Xarelto was switched to 15 mg twice daily however after patient had atrial fibrillation Xarelto was discontinued and patient was started on IV heparin per protocol. Clinically today patient is doing well he is alert and oriented in no apparent distress he denies any chest pain or shortness of breath at this time there is no headache or dizziness no nausea or vomiting no abdominal pain and diarrhea. Objective - Vital Signs Vital signs: Vital Signs Temp 96.9 F L 01/14/18 03:00 Pulse 96 01/14/18 03:00 Resp 18 01/14/18 03:00 BP 110/61 01/14/18 03:00 Pulse Ox 98 01/14/18 03:00 Intake & Output 01/13/18 01/14/18 01/14/18 18:59 06:59 18:59 Intake Total 874 Output Total 300 250 Balance 574 -250 Weight 98.7 kg Intake: IV 520 Sodium Chloride 0.9% 1, 520 000 ml @ 65 mls/hr IV . [id number] [facility] Rx#:[id number] Oral 354 Output: Urine 300 250 Straight 250 Other: Voiding Method Indwelling Catheter Indwelling Catheter - Exam Head normocephalic Neck supple no JVD no goiter no lymphadenopathy Lungs clear to auscultation bilaterally no wheezing or crackles Heart regular rate and rhythm S1-S2, no rub or gallop Abdomen is soft nontender nondistended positive bowel sounds no hepatosplenomegaly Extremities no edema. Right hip dressing clean dry and intact. Right leg increased edema Neuro alert and orientated to 3 - Labs CBC & Chem 7: 01/13/18 06:32 01/14/18 04:58 Labs: Abnormal Lab Results - Last 24 Hours (Table) 01/13/18 01/14/18 Range/Units 06:32 04:58 Sodium 136 L (137-145) mmol/L Carbon Dioxide 21 L (22-30) mmol/L BUN 28 H (9-20) mg/dL Glucose 171 H (74-99) mg/dL Calcium 8.2 L (8.4-10.2) mg/dL Iron 11 L (65-175) ug/dL TIBC 178 L (228-460) ug/dL Iron Saturation 6.18 L (15.00-50.00) Ferritin 406.2 H (22.0-322.0) ng/mL AST 60 H (17-59) U/L Total Protein 5.3 L (6.3-8.2) g/dL Albumin 2.7 L (3.5-5.0) g/dL Microbiology - Last 24 Hours (Table) 01/12/18 00:15 Urine Culture - Final Urine,Voided Assessment and Plan Plan: 1. Status post total right hip arthroplasty with Dr. Childress. Patient is postop day 3. Patient states pain is well controlled. Patient was on Xarelto 10 mg by mouth daily for DVT prophylaxis he had significant swelling in the right lower extremity bilateral lower extremity Doppler was done and it was positive for DVT in the left lower extremity, initially patient was switched to Xarelto 15 mg by mouth twice daily, however through the night patient had episode of atrial fibrillation, at this point will discontinue oral Xarelto and start patient on IV heparin per protoco. 2. Urinary retention. Patient has been started on Flomax. Urology consult has been placed and analysis has been ordered. Per urology if patient continues to be unable to void a Orozco catheter will be inserted be given another voiding trial later this week. Orozco catheter has been placed, patient remains on Flomax. 3. Leukocytosis White blood cell 11.7. Urinary analysis and C. diff has been ordered. Urinary analysis showing a small amount of leukocyte Estrace. Urine culture ordered. White blood cell improving to 5.7. Due to patient's history of recent UTI with MRSA patient's antibiotics switched to vancomycin. Awaiting culture results. C. diff has been ordered 4. History of DVT. Patient states this was back in the 60s 5. History of urinary tract infection. 6. History of falls. Patient recently admitted for fall to left elbow. Patient underwent to [facility] for rehab 7. History of essential hypertension. Continue Norvasc 8. Recent UTI with MRSA. Urine culture positive for MRSA on 01/02. Repeat urine culture for this admission has been ordered 9. Recent treatment for C. diff per family. C. diff sample completed here in hospital on 11/11 and was negative. Per family patient was treated for C. diff infection but never tested positive. C. diff sample has been ordered. 10. Increased right leg edema. Venous Doppler has been ordered 11. Expected acute blood loss anemia secondary to surgery. Hemoglobin decreasing to 8.6. No active signs of bleeding at this time. Iron studies have been ordered. Patient started on ferrous sulfate. 12. New onset atrial fibrillation patient had an episode of rapid ventricular response through the night he was started on Cardizem drip, at this time heart rate is well-controlled cardiology consult was requested Thank you for this consultation we'll continue to follow patient closely throughout stay A.m. labs have been ordered DVT prophylaxis Xarelto. GI prophylaxis Pepcid
[2018-01-14] MEDS ORDERED: HEPARIN SODIUM,PORCINE 5,000 UNIT/ML 1 ML VIAL IV PRN ×2 (10:08→10:17)
[2018-01-14 10:28] VITALS: BP 100/56; PULSE 100; RESP 20; TEMP 98.8
[2018-01-14] MEDS ORDERED: HEPARIN SOD,PORK IN 0.45% NACL 25,000 UNIT in 0.45% NACL 1 500ML.BAG IV SCH (10:30)
[2018-01-14] MEDS ORDERED: methylPREDNISolone SOD SUCCI 125 MG/2 ML VIAL IV STA (10:47)
[2018-01-14 10:48] LABS: Glucose,Whole Blood 237 mg/dL (75-99)
--- NOTE | 2018-01-14 13:02 | CONS ---
CONSULTATION This is an 82-year-old gentleman who has been admitted to [facility] for right hip surgery. The patient has developed DVT of the left lower extremity. The patient is on anticoagulation. MEDICAL HISTORY: History of hypertension, cardiomegaly, osteoporosis. The patient also has developed some urine retention, under care of Urology. PHYSICAL EXAMINATION: Patient was seen in his room, lying comfortably in bed. NECK: Supple. Trachea central. CHEST: Clear to auscultation. ABDOMEN: Soft. Femoral pulses are present. Patient has no vascular compromise to the left lower extremity. Ultrasound shows DVT of the left common femoral vein. At this point, patient is responding to anticoagulation well. I would continue with the anticoagulation and the patient will need a Jobst stocking and when patient discharged from the hospital, we will follow up in the office. At this point, no surgical intervention needed. MMODL / IJN: [id number] /
--- NOTE | 2018-01-14 13:37 | P.CONS ---
History of Present Illness - Reason for Consult Consult date: 01/14/18 LLE DVT Requesting physician: Victor Manuel Saunders - Chief Complaint Right hip arthroplasty - History of Present Illness Mr. Melendrez is an 82-year-old gentleman who came in for a right hip arthroplasty, course complicated by left lower extremity DVT. He was on prophylactic Xarelto which was changed to full dose Xarelto with the diagnosis of LLE common femoral DVT. He subsequently developed new onset atrial fibrillation and was switched to a heparin drip. His CBC has showed a WBC of 5, hemoglobin 10's now decreasing to 8, and platelets decreasing from 150-116. We were called due to his DVT. Unfortunately prior to my seeing the patient he did go into respiratory distress, was intubated, and then went into cardiac arrest and . Review of Systems All systems: negative Constitutional: Reports as per HPI Past Medical History Past Medical History: Deep Vein Thrombosis (DVT), Hypertension, Osteoarthritis ( OA) Additional Past Medical History / Comment(s): hx. blood clot in leg back in the 's, recent UTI in October & tx. for, was in [facility] last month for short term rehab after a fall & elbow injury, tx. w/antibiotics for possible C-diff recently by PCP but no stool culture obtained-last culture in October was neg. History of Any Multi-Drug Resistant Organisms: MRSA Year Discovered:: 01-04-2018 MDRO Source:: urine Past Surgical History: Appendectomy, Cholecystectomy Additional Past Surgical History / Comment(s): galstones removed Past Anesthesia/Blood Transfusion Reactions: No Reported Reaction Past Psychological History: No Psychological Hx Reported Smoking Status: Never smoker Past Alcohol Use History: Occasional Past Drug Use History: None Reported - Past Family History Mother Family Medical History: Cancer Medications and Allergies Home Medications Medication Instructions Recorded Confirmed Type Acetaminophen Tab [Tylenol] 650 mg PO Q6HR PRN 01/05/18 01/10/18 History L.acidoph,Paracasei, B.lactis 1 cap PO TID 01/05/18 01/10/18 History [Probiotic] amLODIPine BESYLATE [Norvasc] 10 mg PO DAILY 01/05/18 01/10/18 History HYDROcodone/APAP 5-325MG [Marion 1 - 2 tab PO Q4-6H PRN #84 tab 01/13/18 Rx 5-325] Sennosides [Senokot] 1 tab PO BID #60 tablet 01/13/18 Rx Allergies Allergy/AdvReac Type Severity Reaction Status Date / Time No Known Allergies Allergy Verified 01/10/18 16:36 Physical Exam Vitals: Vital Signs Temp Pulse Resp BP Pulse Ox 01/14/18 09:00 98.8 F 100 20 100/56 98 01/14/18 03:00 96.9 F L 96 18 110/61 98 01/14/18 01:10 98.7 F 100 18 118/56 96 01/14/18 00:15 98.2 F 87 20 113/69 96 01/13/18 19:05 99.4 F 84 20 127/63 95 01/13/18 15:00 98 F 62 16 117/55 98 Intake and Output 01/13/18 01/14/18 01/14/18 22:59 06:59 14:59 Intake Total 118 Output Total 300 250 Balance -182 -250 Intake: Oral 118 Output: Urine 300 250 Straight 250 Other: Voiding Method Indwelling Catheter Indwelling Catheter Indwelling Catheter Weight 98.7 kg General: In no acute distress. HEENT: EOMI. No conjunctival pallor or scleral icterus. Mucosa moist. Neck: Neck supple. Lymph: No cervical/supraclavicular or axillary LAD. Lungs: CTA-B without wheezing or rhonchi. Heart: RRR. No LE edema. Abdomen: Soft, nontender, nondistended, with positive bowel sounds. No hepatosplenomegaly or masses appreciated. MSK: 4/4 strength in all 4 extremities. Neuro: Alert and oriented 3. No obvious gross neurologic deficits. Skin: No jaundice or rash. Psych: Appropriate affect. Results CBC & Chem 7: 01/13/18 06:32 01/14/18 04:58 Labs: Abnormal Lab Results - Last 24 Hours (Table) 01/13/18 01/14/18 01/14/18 Range/Units 06:32 04:58 10:35 Sodium 136 L (137-145) mmol/L Carbon Dioxide 21 L (22-30) mmol/L BUN 28 H (9-20) mg/dL Glucose 171 H (74-99) mg/dL POC Glucose (mg/dL) 237 H (75-99) mg/dL Calcium 8.2 L (8.4-10.2) mg/dL Iron 11 L (65-175) ug/dL TIBC 178 L (228-460) ug/dL Iron Saturation 6.18 L (15.00-50.00) Ferritin 406.2 H (22.0-322.0) ng/mL AST 60 H (17-59) U/L Total Protein 5.3 L (6.3-8.2) g/dL Albumin 2.7 L (3.5-5.0) g/dL Microbiology - Last 24 Hours (Table) 01/12/18 00:15 Urine Culture - Final Urine,Voided Comments: Bilateral LE venous doppler reviewed. Assessment and Plan Assessment: 1. Right hip arthroplasty 2. Provoked LLE DVT due to surgery 3. Thrombocytopenia 4. New onset atrial fibrillation Plan: Mr. Melendrez is an 82-year-old gentleman who is here for right hip arthroplasty, course complicated by a provoked left lower extremity common femoral vein DVT. We were called to evaluate him for his DVT with downtrending platelets. I did review his chart thoroughly. Thrombocytopenia likely consumptive to his VTE. His DVT is provoked from recent surgery and hospitalization, and mobility. Unfortunately prior to my seeing the patient he did have respiratory distress requiring intubation however soon afterwards went into cardiac arrest and .
--- NOTE | 2018-01-14 17:22 | P.DS ---
Providers Date of admission: 01/10/18 11:23 Attending physician: Victor Manuel Saunders Consults: 01/10/18 14:01 Consult Physician Routine Consulting Provider: Cammy Duff Consult Reason/Comments: medical management Do you want consulting provider notified?: Yes 01/11/18 10:26 Consult Physician Routine Consulting Provider: Arthur Hawkins Consult Reason/Comments: urinary retention Do you want consulting provider notified?: Yes 01/14/18 09:36 Consult Physician Routine Consulting Provider: Jun Gallardo Consult Reason/Comments: a fib Do you want consulting provider notified?: Yes 01/14/18 09:37 Consult Physician Routine Consulting Provider: Paulo Fonseca Consult Reason/Comments: DVT Do you want consulting provider notified?: Yes 01/14/18 09:46 Consult Physician Routine Consulting Provider: Elie Leone Consult Reason/Comments: DVT Do you want consulting provider notified?: Yes Primary care physician: Michelle Reynaga Hospital Course: Hospital course: 82-year-old male patient of Dr. Reynaga. Patient presented to the hospital for an elective total right hip arthroplasty with Dr. Saunders. Patient is currently postop day 1. Patient has a known past medical history of osteoporosis, cardiomegaly, hypertension, weakness and urinary tract infection. Patient is currently resting comfortably in bed. Patient does complain that he has not been able to urinate on his own due to retention since surgery. Patient has been started on Flomax. Urinary analysis has been ordered and neurology consult has been placed. This time patient denies chest pain or shortness of breath. Patient denies nausea vomiting or diarrhea. On 01/12/2018 patient is currently alert and oriented 3. Patient is postop day 2. Patient does express that he is frustrated with not being urinate some. Dr. Gallegos following for urology. Plan to continue straight cathing and assess for possible Orozco catheter insertion if unable to void on own per urology. Patient denies chest pain or shortness of breath. Patient denies any urinary burning or frequency patient denies nausea vomiting or diarrhea On 01/13/2018 patient is alert and oriented 3. Patient is postop day 3. Patient currently has Orozco catheter to aid in urinary retention. Patient treated for recent urinary tract infection with MRSA on 01/02. Patient UA positive for infection during this admit. Urine culture has been ordered. Antibiotics switched to vancomycin. Patient also having low-grade temps 99.5. Per patient and family. Patient was recently treated for C. diff outpatient. Per family patient was actually never tested positive for C. diff. C. diff completed here in hospital on 11/11 and was negative. Repeat C. diff has been ordered. At this time patient denies chest pain or shortness of breath. Patient does complain of increased swelling to right leg. Venous Doppler has been ordered. Patient denies nausea vomiting or diarrhea. Does complain of decreased appetite. Patient denies any urinary burning or frequency complain he is still having retention issues. On 01/14/2018 patient is alert and oriented 3 he was seen and examined on the 6 floor, through the night he had new onset atrial fibrillation with an episode of atrial fibrillation with rapid ventricular response, he was started on Cardizem drip and transferred to telemetry floor, cardiology consult was requested, patient also had positive DVT in the left lower extremity, dose of Xarelto was switched to 15 mg twice daily however after patient had atrial fibrillation Xarelto was discontinued and patient was started on IV heparin per protocol. Clinically today patient is doing well he is alert and oriented in no apparent distress he denies any chest pain or shortness of breath at this time there is no headache or dizziness no nausea or vomiting no abdominal pain and diarrhea. On 01/14/2018 patient was seen again, he developed worsening shortness of breath , he is CODE STATUS was DO NOT RESUSCITATE, he was asked if he wishes to be intubated, and he agreed to intubation and mechanical ventilation, patient was intubated and started on mechanical ventilation, he developed cardiac arrest, I met with the family, and they stated that he clearly did not want to to have chest compressions or a code, I explained to them that at this point if we do not do with chest compression and provide medication through the code protocol, patient will , they understood patient condition and still stated that we should abide by patient wishes. At that point, the ventilator was turned off, and patient . Plan - Discharge Summary Discharge Rx Participant: Yes New Discharge Prescriptions: New HYDROcodone/APAP 5-325MG [[place] 5-325] 1 - 2 tab PO Q4-6H PRN #84 tab PRN Reason: Pain Sennosides [Senokot] 1 tab PO BID #60 tablet No Action Acetaminophen Tab [Tylenol] 650 mg PO Q6HR PRN PRN Reason: Pain amLODIPine BESYLATE [Norvasc] 10 mg PO DAILY L.acidoph,Paracasei, B.lactis [Probiotic] 1 cap PO TID Discharge Medication List Acetaminophen Tab [Tylenol] 650 mg PO Q6HR PRN 01/05/18 [History] L.acidoph,Paracasei, B.lactis [Probiotic] 1 cap PO TID 01/05/18 [History] amLODIPine BESYLATE [Norvasc] 10 mg PO DAILY 01/05/18 [History] HYDROcodone/APAP 5-325MG [[place] 5-325] 1 - 2 tab PO Q4-6H PRN #84 tab 01/13/18 [ Rx] Sennosides [Senokot] 1 tab PO BID #60 tablet 01/13/18 [Rx] Follow up Appointment(s)/Referral(s): Victor Manuel Saunders DO [Doctor of Osteopathic Medicine] - 01/25/18 2:50 pm Activity/Diet/Wound Care/Special Instructions: Weightbearing as tolerated with walker Leave dressing intact. Dressing may be removed by home care nurse in 10 days. May shower with dressing on. Follow-up with [facility] in 2 weeks, please call with any questions or concerns [phone] Discharge Disposition: TRANSFER TO SNF/ECF
--- NOTE | 2018-01-16 12:38 | CDI ---
Last Revision, March 2017 Documentation Clarification Form Date: 01/27/18 From: Tracy De León Suki Mayo, Copyright Clerk Hours-8:30 am & 5 pm Kyle Admit Date: 01/10/2018 11:23:00 AM Patient Name: Joel Melendrez Visit Number: [id number] Discharge Date: 01/12/18 ATTENTION: The Clinical Documentation Specialists (CDI) and [facility] Coding Staff appreciate your assistance in clarifying documentation. Please respond to the clarification below the line at the bottom and electronically sign. The CDI & [facility] Coding staff will review the response and follow-up if needed. Please note: Queries are made part of the Legal Health Record. If you have any questions, please contact the author of this message via ITS. Cammy Sofia MD Atrial fibrillation is documented in your 01/14 progress note. History/Risk Factors: THR, urinary retention, UTI, left femoral DVT EKG/telemetry: atrial fibrillation with RVR Treatment: Sandra miranda In your professional opinion, can you please clarify the type of atrial fibrillation, if known? Chronic/Permanent Paroxysmal Persistent Other, please specify Unable to determine Please continue to document in your progress notes and discharge summary in order to capture severity of illness and risk of mortality. Include clinical findings that support your diagnosis. MTDD
--- NOTE | 2018-01-16 17:16 | CDI ---
Date: 01/16/2018 4:12:32 PM From: Ro HUN,CCDS,RN Phone: [phone] Admit Date: 01/10/2018 11:23:00 AM Patient Name: Joel Melendrez Visit Number: [id number] Discharge Date:01/14/2018 ATTENTION: The Clinical Documentation Specialists (CDI) and [facility] Coding Staff appreciate your assistance in clarifying documentation. Please respond to the clarification below the line at the bottom and electronically sign. The CDI & [facility] Coding staff will review the response and follow-up if needed. Please note: Queries are made part of the Legal Health Record. If you have any questions, please contact the author of this message via ITS. Cammy Sofia MD 85 yo s/p rt [facility] on 01/10/2018 developed DVT left lower extremity , Anticoagulation switched from prophylactic Xarelto to full dose Xarelto and subsequently developed afib with RVR and heparin drip was ordered. Pt agreed to intubation but declined CPR and defibrillation.pt 11:08. Patient history/risk factors: OA, weakness, UTI with MRSA, DVT in 1960s, mobility issues, cardiomegaly, recent rehab stay. Clinical Indicators: DVT 9:01/14 01:10 transferred for afib RVR. Public Relations Associate notes went into resp distress, was intubated and then went into cardiac arrest . NN 01/14 seen earlier by decision was made to put pt on heparin for a possible PE. Called to pts room, with blue color to his lips, stridor breathing , A-team called, breathing was getting significantly worse and pt was starting to sweat, agreed to be intubated, Tele monitor with new wide QRS complex. 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 VS 01/14 98.8 100 20 100/56 98% room air to 100 %FIO2 Post intubation notes hr -88 bp 164/104 Venous Doppler Left femoral DVT on : 15:28 Consults: Hematology/urology/medicine Treatment: intubation and mechanical ventilation, full dose Xarelto, ordered IV heparin/select care transfer, o2 In your professional opinion, can you please specify the etiology of the difficulty in breathing and hypoxia if known? Pulmonary Embolism Other condition, please specify Unable to determine unable to determine MTDD
--- NOTE | 2018-01-16 17:43 | CDI ---
Date: 01/16/2018 From: Ro HUN,CCDS,RN Admit Date: 01/10/2018 11:23:00 AM Patient Name: Joel Melendrez Visit Number: [id number] Discharge Date: 01/14/2018 ATTENTION: The Clinical Documentation Specialists (CDI) and [facility] Coding Staff appreciate your assistance in clarifying documentation. Please respond to the clarification below the line at the bottom and electronically sign. The CDI & [facility] Coding staff will review the response and follow-up if needed. Please note: Queries are made part of the Legal Health Record. If you have any questions, please contact the author of this message via ITS. Cammy Sofia MD 85 yo s/p rt [facility] on 01/10/2018 developed DVT left lower extremity ,developed afib with RVR and heparin drip was ordered. Pt agreed to intubation but declined CPR and defibrillation.pt 11:08. Patient history/risk factors: OA, weakness, UTI with MRSA, DVT in 1960s, mobility issues, cardiomegaly, recent rehab stay. Clinical Indicators: DVT 01/14 01:10 transferred for afib RVR. Quality Assurance Nurse notes went into resp distress, was intubated and then went into cardiac arrest .NN 01/14 seen earlier by decision was made to put pt on heparin for a possible PE. 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 Acute respiratory failure with hypoxia Other, please specify Unable to determine Acute hypoxic respiratory failure MTDD
--- NOTE | 2018-01-25 11:07 | CDI ---
Date: 01/16/2018 5:30:00 PM From: Ro ALICIA,RN,CCDS Admit Date: 01/10/2018 11:23:00 AM Patient Name: Joel Melendrez Visit Number: [id number] Discharge Date:01/14/2018 ATTENTION: The Clinical Documentation Specialists (CDI) and [facility] Coding Staff appreciate your assistance in clarifying documentation. Please respond to the clarification below the line at the bottom and electronically sign. The CDI & [facility] Coding staff will review the response and follow-up if needed. Please note: Queries are made part of the Legal Health Record. If you have any questions, please contact the author of this message via ITS. Cammy Caldera MD 85 yo s/p rt [facility] on 01/10/2018 developed DVT left lower extremity, developed Afib with RVR and heparin Drip was ordered. PT agreed to intubation but declined CPR and defibrillation. Pt 11:08. Hx /Risk factors: OA, Weakness, UTI with MRSA,DVT in 1960s, mobility issues, cardiomegaly, recent rehab stay. Clinical Indicators: DVT 01/13 01/14 01:10 transferred for Afib RVR. 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 Called into pts room, with blue color to his lips, stridor breathing, A-team called, breathing was getting significantly worse and pt was starting to sweat, agreed to be intubated. Tele monitor with new wide QRS complex, ACRN arrived at 1026 pt pastey, diaphoretic cool and in respiratory distress, DUST SAMPLER called ot intubate alert able to respond, tachypnea and O2 sats low 80s. Venous Doppler Left femoral DVT on 01/13 15:28 Consults: Hematology/urology/medicine Treatment, O2 initially via NC with subsequent intubation and 100% FIO2 noted In your professional opinion, can you please render your opinion on pts respiratory status requiring intubation? Acute respiratory failure with hypoxia Other, please specify Unable to determine Acute respiratory failure with hypoxia MTDD
== END 2018-01-14 13:15 | disposition expired | DRG 469 ==
LOC: 2ORMAIN 11:23 → 3SUR 18:16 → 6SEL 01-14 01:17
PROVIDERS: ADMIT Orthopaedic Surgery; ATTEND Orthopaedic Surgery
PROC: 30233N0 Transfusion of Autologous Red Blood Cells into Peripheral Vein, Percutaneous Approach (ICD-10-PCS; 2018-01-10)
PROC: 0SR906A Replacement of Right Hip Joint with Oxidized Zirconium on Polyethylene Synthetic Substitute, Uncemented, Open Approach (ICD-10-PCS; principal; 2018-01-10 15:15)
PROC: 0BH17EZ Insertion of Endotracheal Airway into Trachea, Via Natural or Artificial Opening (ICD-10-PCS; 2018-01-14)
PROC: 5A1935Z Respiratory Ventilation, Less than 24 Consecutive Hours (ICD-10-PCS; 2018-01-14)
DX: M16.11 Unilateral primary osteoarthritis, right hip (principal); J96.01 Acute respiratory failure with hypoxia; I82.412 Acute embolism and thrombosis of left femoral vein; N39.0 Urinary tract infection, site not specified; D62 Acute posthemorrhagic anemia; B95.62 Methicillin resistant Staphylococcus aureus infection as the cause of diseases classified elsewhere; D69.6 Thrombocytopenia, unspecified; I11.9 Hypertensive heart disease without heart failure; I46.9 Cardiac arrest, cause unspecified; R33.8 Other retention of urine; N32.0 Bladder-neck obstruction; Z66 Do not resuscitate; M65.821 Other synovitis and tenosynovitis, right upper arm; M81.0 Age-related osteoporosis without current pathological fracture; Z79.899 Other long term (current) drug therapy; Z87.440 Personal history of urinary (tract) infections; Z90.49 Acquired absence of other specified parts of digestive tract; Z86.718 Personal history of other venous thrombosis and embolism; Z86.14 Personal history of Methicillin resistant Staphylococcus aureus infection; Z86.19 Personal history of other infectious and parasitic diseases; Z91.81 History of falling; Z87.442 Personal history of urinary calculi; I48.91 Unspecified atrial fibrillation
CPT/HCPCS: 73501; 80048; 80053; 81001; 82728; 83540; 83550; 83735; 85025; 86850; 86891; 86900; 86901; 87086; 88300; 93005; 93970; 94002